=== PATIENT | male | born 1955 | race Caucasian/White ===

== ENCOUNTER → 2017-08-16 | Outpatient (CLI) | payer OTHER ==
[~2017-08-16] MED LIST: ASPEC81 PO; ATOR-22 PO; CLB200 PO; ESCI10TA17 PO; FAMO20TA11 PO; FLUO20CA35 PO; METO100T14 PO; METO25TA56 PO; METO50TA16 PO; NIAC500T11 PO; SULF500T36 PO
[2017-08-16 17:40] LABS: BLOOD UREA NITROGEN 17 mg/dl (7-18); BUN/CREATININE RATIO 21.2 (10-20); CREATININE 0.81 mg/dl (0.60-1.40)
== END | disposition home or self-care (01) ==
LOC: C.LABBC 15:21
PROVIDERS: ATTEND Physician Assistant Medical
DX: N35.9 Urethral stricture, unspecified (principal); M54.9 Dorsalgia, unspecified

== ENCOUNTER → 2017-10-29 | Outpatient (CLI) | payer OTHER ==
[~2017-10-29] MED LIST changes: -ESCI10TA17 PO; -METO25TA56 PO; -METO50TA16 PO; -NIAC500T11 PO; -SULF500T36 PO
[2017-10-29 15:38] LABS: HEMATOCRIT 43.9 % (42-52); HEMOGLOBIN 14.4 g/dL (14.0-18.0); MEAN CELL VOLUME 92.2 fL (80-100); MEAN CORPUSCULAR HEMOGLOBIN 30.3 pg (25-34); MEAN CORPUSCULAR HGB CONC 32.8 g/dl (32-36); MEAN PLATELET VOLUME 11.1 fL (7.4-10.4); PLATELET COUNT 230 K/uL (130-400); RED CELL DISTRIBUTION WIDTH CV 15.3 % (11.5-14.5); RED CELL DISTRIBUTION WIDTH SD 51.9 fL (36.4-46.3); WHITE BLOOD COUNT 7.99 K/uL (4.8-10.8)
[2017-10-29 16:02] LABS: ALBUMIN 3.8 gm/dl (3.4-5.0); ALT/SGPT 36 U/L (12-78); AST/SGOT 21 U/L (15-37); BLOOD UREA NITROGEN 12 mg/dl (7-18); CALCIUM 8.5 mg/dl (8.5-10.1); CARBON DIOXIDE 28 mmol/L (21-32); CHOLESTEROL 109 mg/dl (0-200); CREATININE 0.77 mg/dl (0.60-1.40); GLUCOSE 101 mg/dl (70-99); LDL CHOLESTEROL CALCULATED 53 mg/dl; POTASSIUM 3.6 mmol/L (3.5-5.1); SODIUM 138 mmol/L (136-145)
[2017-10-29 16:12] LABS: ALKALINE PHOSPHATASE 58 U/L (45-117); TOTAL PROTEIN 7.4 gm/dl (6.4-8.2)
[2017-10-30 06:04] LABS: HEMOGLOBIN A1C 6.7 % (4.5-5.6)
== END | disposition home or self-care (01) ==
LOC: C.LAB1850 14:47
PROVIDERS: ATTEND Internal Medicine Cardiovascular Disease
DX: Z00.00 Encounter for general adult medical examination without abnormal findings (principal); I10 Essential (primary) hypertension; E78.5 Hyperlipidemia, unspecified

== ENCOUNTER → 2017-11-23 | Outpatient (CLI) | payer OTHER ==
--- NOTE | 2017-11-23 11:14 | DIAGNOSTIC IMAGING REPORT ---
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 FINDINGS: The sacroiliac joints are within normal limits. No evidence for erosions or fusion. No radiographic evidence for single ileitis. No fractures identified within the sacrum. Surgical clips within the deep pelvis. IMPRESSION: Normal bilateral sacroiliac joints. Electronically signed by: Lester Willett M.D. 11/23/2017 11:12 AM Dictated Date/Time: 11/23/2017 11:10 AM
--- NOTE | 2017-11-23 11:16 | DIAGNOSTIC IMAGING REPORT ---
C-SPINE ROUTINE 4 OR 5 VIEWS HISTORY: Pain. Neuropathy. 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 FINDINGS: The cervical spine is visualized from C1 through the superior endplate of T1. There is no fracture. No subluxation. Mild/moderate degenerative disc change C4-C5. Mild osteophytic narrowing of the neuroforamina bilaterally from C3 through C5. Prevertebral soft tissues and the atlantodens interval are intact. IMPRESSION: Mild/moderate degenerative change primarily of the mid cervical region. No acute process. The above report was generated using voice recognition software. It may contain grammatical, syntax or spelling errors. Electronically signed by: Matt Mccartney M.D. 11/23/2017 11:14 AM Dictated Date/Time: 11/23/2017 11:14 AM
--- NOTE | 2017-11-23 11:17 | DIAGNOSTIC IMAGING REPORT ---
LEFT WRIST 4 VIEWS; LEFT HAND 3 VIEWS CLINICAL HISTORY: Psoriatic arthropathy. FINDINGS: 4 views of the left wrist an 3 views of the left hand are obtained. No prior studies are available for comparison at the time of dictation. No fracture is seen in the left wrist or hand. Periarticular osteopenia is noted involving the metacarpophalangeal joints. Osteopenia is also seen throughout the carpal bones. There is advanced degenerative narrowing at the radiocarpal articulation with mild bony sclerosis. Mild negative ulnar variance is noted. Degenerative cyst formation is seen within the distal ulna, and arthritic change is present at the distal radioulnar joint. There is complete fusion throughout the carpal bones, with erosive arthritic change seen at the carpometacarpal and metacarpophalangeal joints. There is subluxation identified at the first carpometacarpal joint, the first metacarpophalangeal joint, as well as the second and third proximal interphalangeal joints. Advanced erosion is identified involving the heads of the third and fifth proximal phalanges. Milder erosive change is seen in the second and third metacarpal heads as well as the head of the second proximal phalanx. Erosive change is also seen involving the distal interphalangeal joints, greatest in the second and third digits. Mild soft tissue swelling is suggested in the fingers. IMPRESSION: 1. No acute bony abnormality is identified in the left wrist or hand. 2. There is near bony fusion throughout the carpal bones with erosive arthritic change at the carpometacarpal articulations. 3. Advanced erosive arthritic change is identified throughout the hand as above. See discussion. Electronically signed by: Go Villalpando M.D. 11/23/2017 11:16 AM Dictated Date/Time: 11/23/2017 11:08 AM
--- NOTE | 2017-11-23 11:17 | DIAGNOSTIC IMAGING REPORT ---
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 COMPARISON: None DISCUSSION: Severe degenerative change right wrist. Ankylosis and degenerative fusion of the bulk of the carpal bone structures. Erosive changes involving the base of the first metacarpal. Severe degenerative change of the radiocarpal and ulnocarpal articulations. There is no evidence for soft tissue swelling. IMPRESSION: Severe degenerative change with evidence for bony ankylosis and fusion.] This exam is Highly suggestive of advanced psoriatic arthropathy. The above report was generated using voice recognition software. It may contain grammatical, syntax or spelling errors. Electronically signed by: Matt Mccartney M.D. 11/23/2017 11:16 AM Dictated Date/Time: 11/23/2017 11:15 AM
--- NOTE | 2017-11-23 11:21 | DIAGNOSTIC IMAGING REPORT ---
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 DISCUSSION: Severe degenerative change and bony ankylosis of the carpal bones which has been described previously. Severe degenerative change of the carpal metacarpal joints. Degenerative subluxation of the first carpometacarpal joint with evidence for erosive changes involving the base of the first metacarpal as well as metacarpophalangeal joint of the right thumb. Considerable degenerative change of the interphalangeal joints with subchondral erosive-type change. There is no evidence for soft tissue swelling. IMPRESSION: Severe degenerative change primarily of the thumb and carpal regions. Significant degenerative change of the interphalangeal joints. This study is highly suggestive of advanced psoriatic arthritis. The above report was generated using voice recognition software. It may contain grammatical, syntax or spelling errors. Electronically signed by: Matt Mccartney M.D. 11/23/2017 11:20 AM Dictated Date/Time: 11/23/2017 11:18 AM
== END | disposition home or self-care (01) ==
LOC: C.RAD1850 10:43
PROVIDERS: ATTEND Internal Medicine Rheumatology
DX: G37.9 Demyelinating disease of central nervous system, unspecified (principal); L40.50 Arthropathic psoriasis, unspecified

== ENCOUNTER → 2017-11-28 | Outpatient (CLI) | payer OTHER ==
--- NOTE | 2017-11-28 16:34 | DIAGNOSTIC IMAGING REPORT ---
SACROILIAC JOINT MRI HISTORY: Assess for sacroiliitis. 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 COMPARISON STUDY: Sacroiliac joint radiographs 11/23/2017. FINDINGS: Tiny focal central disc protrusion at L5-S1 without significant central canal or neural foraminal narrowing. Normal marrow signal intensity seen within the sacrum and visualized iliac bones. The bilateral sacroiliac joints are within normal limits. No erosions or fluid identified within the sacroiliac joints. Presacral soft tissues are unremarkable. The sacral central canal and neural foramen are widely patent. Mild edema within the distal right erector spinae muscles at the level of L5 and the distal sacrum. IMPRESSION: 1. Normal sacrum/sacroiliac joints. 2. Mild edema within the distal right erector spinae muscles at the level of L5 and the distal sacrum. This is nonspecific but could be due to a mild muscular strain or denervation atrophy. 3. Tiny focal central disc protrusion at L5-S1 without significant central canal narrowing. Electronically signed by: Lester Willett M.D. 11/28/2017 4:32 PM Dictated Date/Time: 11/28/2017 4:00 PM
== END | disposition home or self-care (01) ==
LOC: C.MRI 15:18
PROVIDERS: ATTEND Internal Medicine Rheumatology
DX: M48.9 Spondylopathy, unspecified (principal); L40.50 Arthropathic psoriasis, unspecified; G37.9 Demyelinating disease of central nervous system, unspecified

== ENCOUNTER 2021-02-24 09:40 | Inpatient (IN) ==
[2021-02-24] MEDS ORDERED: SODIUM CHLORIDE 0.9% 1000ML 1,000 ML IV STA (10:36)
--- NOTE | 2021-02-24 10:42 | Emergency Department Note ---
Impression & Plan Left sided abdominal pain, Leukocytosis, Acute diverticulitis, Failure of outpatient treatment ED Provider Note NAME: RADHA MURRAY AGE: 66 SEX: M : 1955 ARRIVES VIA: Walk-In INFORMANT: [Patient] ED PROVIDER(S): [Go Cain MD] CHIEF COMPLAINT: Abdominal pain HISTORY OF PRESENT ILLNESS: Patient is a 66-year-old male presents with 4 days of lower abdominal pain. The pain at times has been a 10/10. The worst bout of pain was when his dog jumped on his abdomen. Patient also notices increased pain with movement and palpation. He has also had a fever, temperature recorded at 101 F. There has been a decreased appetite but no vomiting. He does have some pain with urination. No diarrhea. No shortness of breath, cough or congestion. The patient did start Augmentin for the possibility of diverticulitis. He has taken 4 doses and he actually thought this morning he felt slightly better. The patient has had a prostatectomy. He has some scar tissue from the prostate surgery causing some mild urinary obstruction. The patient states that for the last several months he has had some suprapubic pain with straining that he felt was from the scar tissue itself. He has had some occasional times when the left lower quadrant has been tender to touch. His real discomfort though and persistent symptoms did not start until 4 days ago. REVIEW OF SYSTEMS: See HPI for pertinent positives and negatives. A total of ten systems were reviewed and were otherwise negative. PMHx/PSHx: See Below SOCIAL HISTORY: See Below. PHYSICAL EXAM: GENERAL: Patient is in no acute distress. HEENT: No acute trauma, normocephalic atraumatic, mucous membranes moist, no nasal congestion, no scleral icterus. NECK: No stridor, no adenopathy, no meningismus, trachea is midline. LUNGS: Clear to auscultation bilaterally, no wheeze, no rhonchi, breath sounds equal. HEART: Without murmurs gallops or rubs, regular rate and rhythm. ABDOMEN: Soft, moderately tender in the left lower quadrant and suprapubic area, bowel sounds positive, no hernias, no peritonitis. EXTREMITIES: No cyanosis or edema, full range of motion of all the joints without pain or difficulty, no signs for acute trauma. NEUROLOGIC: Oriented x 3, no acute motor or sensory deficits, no focal weakness. SKIN: No rash, no jaundice, no diaphoresis. DIFFERENTIAL DIAGNOSIS: Testicular torsion, infections, diverticulitis, UTI, obstruction, mesenteric ischemia, abscess, aortic pathology, inflammatory bowel disease, renal colic, PUD, pancreatitis, biliary pathology, hernia, volvulus, constipation, as well as other pathologies. EMERGENCY DEPARTMENT COURSE/PROCEDURES: MEDICAL DECISION MAKING: There is a moderate leukocytosis at 15,000, this would be consistent with infection. No concerning anemia. There is a normal platelet count. No significant electrolyte abnormality or kidney failure. No worrisome liver enzyme elevation. No evidence for pancreatitis. Urinalysis did not show infection. Covid testing returned negative. Abdominal and pelvis CT shows diverticulitis with a 1.8 cm abscess, no bowel perforation. On exam, the patient was tender in the left lower quadrant and mid pelvis. He was not toxic, he was not febrile. The patient received a 1 L saline bolus. He was given a dose of IV Unasyn. I talked to the patient about his findings. I discussed the case with surgery. The patient is going to be admitted medically. No acute surgical intervention was felt necessary. The patient is aware of his diagnosis. I did speak with case management. The on-call hospitalist was consulted. 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 Psoriatic arthritis Surgical History H/O prostatectomy History of appendectomy History of colonoscopy Social History Smoking Status: Never smoker Second Hand Exposure: Yes (as a child); Do You Dip or Chew Tobacco: No; Hx Alcohol Use: Yes Alcohol type: beer and wine Hx Substance Use: No Preferred Language: Telugu Communication Ability: Effective Appeals Representative Required: No Beliefs That Will Affect Care: None Current Living Situation: Spouse Other Information That Helps Us Care for You: No Feels Safe at Home: Yes Safety Concerns: Feels Safe At This Time Assistive Devices: Glasses Allergies Allergies Allergy/AdvReac Type Severity Reaction Status Date / Time No Known Allergies Allergy Unknown Verified 02/27/20 08:04 Home Meds Home Medications Medication Instructions Recorded Confirmed aspirin 81 mg tablet,delayed 81 mg PO DAILY 11/26/18 02/24/21 release famotidine 20 mg tablet 20 mg PO DAILY PRN 11/26/18 02/24/21 gabapentin 300 mg PO HS PRN 02/24/21 02/24/21 Previous Rx's Medication Instructions Recorded ustekinumab 45 mg/0.5 mL See Rx Instructions .ROUTE 01/26/20 subcutaneous syringe .COMPLEX #1 unspecified sildenafil 100 mg tablet 100 mg PO DAILY PRN #14 tab 03/04/20 metoprolol succinate 100 mg 100 mg PO DAILY #90 tab 06/29/20 tablet,extended release 24 hr metformin 500 mg tablet,extended 500 mg PO DAILY #90 tab 08/11/20 release 24hr meclizine 25 mg tablet 25 mg PO TID PRN #30 tab 08/26/20 fluoxetine 20 mg capsule 20 mg PO DAILY #90 cap 11/01/20 losartan 50 mg tablet 50 mg PO DAILY #90 tab 11/01/20 valacyclovir 500 mg tablet 500 mg PO BID #180 tab 02/02/21 amoxicillin 875 mg-potassium 1 tab PO Q12H #20 tab 02/22/21 clavulanate 125 mg tablet atorvastatin 80 mg tablet 80 mg PO QPM #90 tab 02/23/21 Results & Data (ED) Vital Signs Vital Signs - 24 hr 02/24/21 09:45 02/24/21 12:09 02/24/21 12:13 Temperature 36.6 C Temperature Source Temporal Artery Scan Pulse Rate 75 62 62 Pulse Rate from SpO2 Sensor 62 62 Respiratory Rate 18 17 21 Respiratory Effort / Characteristics Non-Labored Spontaneous Respiratory Depth Normal Respiratory Pattern Regular Blood Pressure 121/87 122/73 Blood Pressure Mean 98 89 Pulse Oximetry 94 96 97 Oxygen Delivery Method Room Air Sepsis Recent Fever Within 48 Hours No Sepsis New/Unexplained Change in Mental Status N/A Sepsis Action Taken by Nursing No Action Required 02/24/21 12:30 02/24/21 13:00 02/24/21 13:01 Temperature Temperature Source Pulse Rate 65 67 66 Pulse Rate from SpO2 Sensor 66 66 66 Respiratory Rate 20 15 24 Respiratory Effort / Characteristics Respiratory Depth Respiratory Pattern Blood Pressure 126/81 Blood Pressure Mean 96 64 Pulse Oximetry 98 99 99 Oxygen Delivery Method Sepsis Recent Fever Within 48 Hours Sepsis New/Unexplained Change in Mental Status Sepsis Action Taken by Nursing 02/24/21 13:30 02/24/21 14:00 Temperature Temperature Source Pulse Rate 66 64 Pulse Rate from SpO2 Sensor 66 65 Respiratory Rate 16 22 Respiratory Effort / Characteristics Respiratory Depth Respiratory Pattern Blood Pressure 129/83 Blood Pressure Mean 98 Pulse Oximetry 99 97 Oxygen Delivery Method Sepsis Recent Fever Within 48 Hours Sepsis New/Unexplained Change in Mental Status Sepsis Action Taken by Skilled Nursing Medications Current Medication List: was personally reviewed by me Laboratory Data Attestation: I reviewed the patient's lab results. Result diagrams: 02/24/21 10:49 02/24/21 10:49 Lab Results 02/24/21 02/24/21 02/24/21 Range/Units 10:49 10:49 10:49 WBC 15.93 H (4.8-10.8) K/uL RBC 4.33 L (4.7-6.1) M/uL Hgb 14.3 (14.0-18.0) g/dL Hct 41.5 L (42-52) % MCV 95.8 (80-100) fL MCH 33.0 (25-34) pg MCHC 34.5 (32-36) g/dL RDW Std Deviation 46.5 H (36.4-46.3) fL RDW Coeff of Noah 13.2 (11.5-14.5) % Plt Count 254 (130-400) K/uL MPV 10.6 H (7.4-10.4) fL Immature Gran % (Auto) 0.2 % Neut % (Auto) 85.8 % Lymph % (Auto) 7.0 % Davis % (Auto) 6.7 % Eos % (Auto) 0.2 % Baso % (Auto) 0.1 % Neut # (Auto) 13.66 H (1.4-6.5) K/uL Lymph # (Auto) 1.12 L (1.2-3.4) K/uL Davis # (Auto) 1.07 H (0.11-0.59) K/uL Eos # (Auto) 0.03 (0-0.5) K/uL Baso # (Auto) 0.02 (0-0.2) K/uL Immature Gran # (Auto) 0.03 H (0.00-0.02) K/uL Sodium 136 (136-145) mmol/L Potassium 3.8 (3.5-5.1) mmol/L Chloride 102 (98-107) mmol/L Carbon Dioxide 29 (21-32) mmol/L Anion Gap 5.0 (3-11) BUN 13 (7-18) mg/dl Creatinine 1.08 (0.6-1.4) mg/dl Est Cr Clr Drug Dosing 57.7 ml/min Est GFR ( Amer) 81.9 ml/min Est GFR (Non-Af Amer) 70.6 ml/min BUN/Creatinine Ratio 12.1 (10-20) Glucose 142 H (70-99) mg/dl Calcium 8.6 (8.5-10.1) mg/dl Total Bilirubin 1.0 (0.2-1) mg/dl AST 15 (15-37) U/L ALT 24 (12-78) U/L Alkaline Phosphatase 77 (45-117) U/L Total Protein 8.3 H (6.4-8.2) gm/dl Albumin 3.7 (3.4-5.0) gm/dl Globulin 4.6 H (2.5-4.0) gm/dl Albumin/Globulin Ratio 0.8 L (0.9-2) Lipase 129 (73-393) U/L Urine Color Yellow Urine Appearance Clear (Clear) Urine pH 5.0 (4.5-7.5) Ur Specific [place] 1.021 (1.000-1.030) Urine Protein Negative (Negative) Urine Glucose (UA) Negative (Negative) Urine Ketones Trace H (Negative) Urine Blood Negative (Negative) Urine Nitrite Negative (Negative) Urine Bilirubin Negative (Negative) Urine Urobilinogen Negative (Negative) Ur Leukocyte Esterase Negative (Negative) COVID-19 Eval Order SARS-CoV-2 (PCR) (Negative) 02/24/21 02/24/21 Range/Units 13:39 13:39 WBC (4.8-10.8) K/uL RBC (4.7-6.1) M/uL Hgb (14.0-18.0) g/dL Hct (42-52) % MCV (80-100) fL MCH (25-34) pg MCHC (32-36) g/dL RDW Std Deviation (36.4-46.3) fL RDW Coeff of Noah (11.5-14.5) % Plt Count (130-400) K/uL MPV (7.4-10.4) fL Immature Gran % (Auto) % Neut % (Auto) % Lymph % (Auto) % Davis % (Auto) % Eos % (Auto) % Baso % (Auto) % Neut # (Auto) (1.4-6.5) K/uL Lymph # (Auto) (1.2-3.4) K/uL Davis # (Auto) (0.11-0.59) K/uL Eos # (Auto) (0-0.5) K/uL Baso # (Auto) (0-0.2) K/uL Immature Gran # (Auto) (0.00-0.02) K/uL Sodium (136-145) mmol/L Potassium (3.5-5.1) mmol/L Chloride (98-107) mmol/L Carbon Dioxide (21-32) mmol/L Anion Gap (3-11) BUN (7-18) mg/dl Creatinine (0.6-1.4) mg/dl Est Cr Clr Drug Dosing ml/min Est GFR ( Amer) ml/min Est GFR (Non-Af Amer) ml/min BUN/Creatinine Ratio (10-20) Glucose (70-99) mg/dl Calcium (8.5-10.1) mg/dl Total Bilirubin (0.2-1) mg/dl AST (15-37) U/L ALT (12-78) U/L Alkaline Phosphatase (45-117) U/L Total Protein (6.4-8.2) gm/dl Albumin (3.4-5.0) gm/dl Globulin (2.5-4.0) gm/dl Albumin/Globulin Ratio (0.9-2) Lipase (73-393) U/L Urine Color Urine Appearance (Clear) Urine pH (4.5-7.5) Ur Specific [place] (1.000-1.030) Urine Protein (Negative) Urine Glucose (UA) (Negative) Urine Ketones (Negative) Urine Blood (Negative) Urine Nitrite (Negative) Urine Bilirubin (Negative) Urine Urobilinogen (Negative) Ur Leukocyte Esterase (Negative) COVID-19 Eval Order Covid19 at [facility] SARS-CoV-2 (PCR) NEGATIVE (Negative) Administered Medications Sodium Chloride (Nss 1000ml) 1,000 mls @ 100 mls/hr IV .Q10H AUGUSTINE Stop: 03/26/21 16:34 Last Admin: 02/24/21 17:20 Dose: 100 mls/hr Documented by: [id number] Insulin Aspart (Insulin Aspart 100 Units/Ml 3 Ml Pen) 0 units SC Q6 AUGUSTINE Stop: 03/26/21 17:59 Last Admin: 02/24/21 18:09 Dose: Not Given Documented by: [id number] Discontinued Medications Sodium Chloride (Nss 1000ml) 1,000 mls @ 999 mls/hr IV .Q1H1M STA Stop: 02/24/21 11:36 Last Infusion: 02/24/21 12:04 Dose: 0 mls/hr Documented by: [id number] Admin: 02/24/21 10:57 Dose: 999 mls/hr Documented by: [id number] Ampicillin Sodium/Sulbactam Sodium 3,000 mg/ Sodium Chloride 108 mls @ 200 mls/hr IV NOW STA; Protocol Stop: 02/24/21 13:07 Last Infusion: 02/24/21 14:06 Dose: 0 mls/hr Documented by: [id number] Admin: 02/24/21 13:27 Dose: 200 mls/hr Documented by: [id number] Insulin Aspart (Insulin Aspart 100 Units/Ml 3 Ml Pen) 0 units SC ACHS AUGUSTINE Stop: 03/26/21 16:34 Last Admin: 02/24/21 17:58 Dose: Not Given Documented by: [id number] Ioversol (Optiray 320 150ml) 95 ml IV ONCE ONE Stop: 02/24/21 11:48 Last Admin: 02/24/21 11:47 Dose: 95 ml Documented by: [id number] Imaging Data Radiologist's Impression: Abdomen/Pelvis CT 02/24/21 10:[address] WITH IV CONTRAST CT DOSE: 659.75 mGycm HISTORY: lower abd pain, fever TECHNIQUE: Multiaxial CT images of the abdomen and pelvis were performed following the use of intravenous contrast. A dose lowering technique was utilized adhering to the principles of ALARA. COMPARISON STUDY: None. FINDINGS: There is a 3 mm subpleural nodule within the right lower lobe on image 42. No suspicious lytic are blastic osseous lesions. The liver, gallbladder, pancreas, spleen, and adrenal glands are unremarkable. There are few subcentimeter hypodense lesions within the left kidney measuring up to 7 mm. These are technically too small to characterize but statistically represent cysts. The right kidney enhances normally. No hydronephrosis. Normal caliber abdominal aorta with mild calcified plaque. No retroperitoneal lymphadenopathy. The bladder is unremarkable. The prostate gland is surgically absent. Focal thickening within the mid sigmoid colon with pericolonic fat stranding. There is a 1.8 cm peridiverticular multiloculated gas and fluid collection likely representing a small abscess. Therefore, these findings are consistent with acute diverticulitis. Multiple additional colonic diverticula are identified. Moderate well-formed stool within the colon. No dilated loops of bowel to suggest an obstruction. A small appendiceal stump is identified suggesting prior appendectomy. IMPRESSION: 1. Acute sigmoid diverticulitis with a 1.8 cm peridiverticular abscess. Follow- up colonoscopy should be performed once the patient's diverticulitis has resolved to exclude the less likely possibility of an underlying colonic lesion. 2. Prior prostatectomy. 3. No evidence for bowel obstruction. 4. A 3 mm indeterminate pulmonary nodule within the right lower lobe. This is low suspicion. However, follow-up recommended as detailed below. Please refer to below summary of Fleischner criteria recommendations for follow- up of incidental CT nodules (Dandy Zelaya, Guidelines for management of small pulmonary nodules detected on CT scans: A statement from the Fleischner Society, Radiology 237: [phone].) SOLID NODULES Solitary nodule size: <6 mm * Low risk patients: no follow-up needed * high risk patients: optional CT at 12 months Solitary nodule size: 6-8 mm * Low risk patients: follow-up at 6-12 months, then consider further follow-up at 18-24 months * high risk patients: initial follow-up CT at 6-12 months and then at 18-24 months if no change Solitary nodule size: >8 mm * either low or high risk patients - consider follow-up CT at 3 months, and/or CT-PET, and/or biopsy Multiple nodules size: <6 mm * Low risk patients: no routine follow-up * high risk patients: optional CT at 12 months Multiple nodules size: 6-8 mm * Low risk patients: follow-up at 3-6 months, then consider further follow-up at 18-24 months * high risk patients: follow-up at 3-6 months, then at 18-24 months if no change Multiple nodules size: >8 mm * Low risk patients: follow-up at 3-6 months, then consider further follow-up at 18-24 months * high risk patients: follow-up at 3-6 months, then at 18-24 months if no change Note: newly detected indeterminate nodule in persons 35 years of age or older. * Low risk patients: minimal or absent history of smoking and/or other known risk factors * high risk patients: history of smoking or of other known risk factors (e.g. first degree relative with lung cancer, or exposure to asbestos, radon, uranium) * if a nodule up to 8 mm is partly solid or is ground glass further follow-up is required after 24 months to exclude possible slow growing adenocarcinoma (BA C) SUBSOLID NODULES Solitary pure ground-glass nodule * nodule size <6 mm - no CT follow-up required * nodule size >=6 mm - follow-up CT at 6-12 months, then every 2 years until 5 years Solitary part-solid nodule * nodule size <6 mm - no CT follow-up required * nodule size >=6 mm - follow-up CT at 3-6 months. If unchanged, and solid component remains <6 mm, then annual follow-up for 5 years Multiple subsolid nodules * nodule size <6 mm - follow-up CT at 3-6 months, consider further follow-up at 2 and 4 years if stable * nodule size >=6 mm - follow-up CT at 3-6 months, subsequent management based on the most suspicious nodule(s) ACT 112: Negative or not required by law. Electronically signed by: Lester Willett M.D. 02/24/2021 12:23 PM Discharge Plan Visit Data Chief Complaint: Abdominal Pain Stated Complaint: ABD PAIN ED Provider: Go Cain Discharge Problem: Left sided abdominal pain, Leukocytosis, Acute diverticulitis, Failure of outpatient treatment Patient Disposition: Admitted As Inpatient Condition: Fair Discharge Instructions Interventions: ED Discharge Assessment Last Done: 02/24/21 15:29 Discharge Problem: Leukocytosis Qualifiers: Leukocytosis type: unspecified Qualified Code(s): D72.829 - Elevated white blood cell count, unspecified
[2021-02-24 11:00] LABS: Basophils # (auto) 0.02 K/uL (0-0.2); Basophils % (auto) 0.1 %; Eosinophils # (auto) 0.03 K/uL (0-0.5); Eosinophils % (auto) 0.2 %; Hematocrit (blood only) 41.5 % (42-52); Hemoglobin 14.3 g/dL (14.0-18.0); Immature Granulocytes # (auto) 0.03 K/uL (0.00-0.02); Immature Granulocytes % (auto) 0.2 %; Lymphocytes # (auto) 1.12 K/uL (1.2-3.4); Mean Corpuscular Hgb Conc 34.5 g/dL (32-36); Mean Corpuscular Volume 95.8 fL (80-100); Mean Platelet Volume 10.6 fL (7.4-10.4); Monocytes # (auto) 1.07 K/uL (0.11-0.59); Monocytes % (auto) 6.7 %; Neutrophils # (auto) 13.66 K/uL (1.4-6.5); Neutrophils % (auto) 85.8 %; Platelet Count 254 K/uL (130-400); RDW Coefficient of Variation 13.2 % (11.5-14.5); RDW Standard Deviation 46.5 fL (36.4-46.3); Red Blood Count 4.33 M/uL (4.7-6.1); White Blood Count 15.93 K/uL (4.8-10.8)
[2021-02-24 11:18] LABS: Albumin Level 3.7 gm/dl (3.4-5.0); BUN Creatinine Ratio 12.1 (10-20); Calcium 8.6 mg/dl (8.5-10.1); Creatinine Clr Calc Pharmacy 57.7 ml/min; Est GFR (African American) 81.9 ml/min; Est GFR (Non-African American) 70.6 ml/min; Potassium 3.8 mmol/L (3.5-5.1)
[2021-02-24 11:19] LABS: Appearance Urine Clear (Clear); Bilirubin Urine Negative (Negative); Blood Urine Negative (Negative); Color Urine Yellow; Glucose Urine UA Negative (Negative); Ketones Urine Trace (Negative); Leukocyte Esterase Urine Negative (Negative); Nitrite Urine Negative (Negative); Protein Urine Negative (Negative); Specific Gravity Urine 1.021 (1.000-1.030); Urobilinogen Urine Negative (Negative)
[2021-02-24 11:21] LABS: Albumin Globulin Ratio 0.8 (0.9-2); Globulin 4.6 gm/dl (2.5-4.0); Total Protein 8.3 gm/dl (6.4-8.2)
[2021-02-24] MEDS ORDERED: OPTIRAY 320 150ml IV ONE (11:47)
--- NOTE | 2021-02-24 12:24 | CT Scan Report ---
ABDOMEN AND PELVIS CT WITH IV CONTRAST CT DOSE: 659.75 mGycm HISTORY: lower abd pain, fever TECHNIQUE: Multiaxial CT images of the abdomen and pelvis were performed following the use of intrave nous contrast. A dose lowering technique was utilized adhering to the principles of ALARA. COMPARISON STUDY: None. FINDINGS: There is a 3 mm subpleural nodule within the right lower lobe on image 42. No suspicious ly tic are blastic osseous lesions. The liver, gallbladder, pancreas, spleen, and adrenal glands are unr emarkable. There are few subcentimeter hypodense lesions within the left kidney measuring up to 7 mm. These are technically too small to characterize but statistically represent cysts. The right kidney enhances normally. No hydronephrosis. Normal caliber abdominal aorta with mild calcified plaque. No r etroperitoneal lymphadenopathy. The bladder is unremarkable. The prostate gland is surgically absent. Focal thickening within the mid sigmoid colon with pericolonic fat stranding. There is a 1.8 cm dillon diverticular multiloculated gas and fluid collection likely representing a small abscess. Therefore, these findings are consistent with acute diverticulitis. Multiple additional colonic diverticula are identified. Moderate well-formed stool within the colon. No dilated loops of bowel to suggest an obst ruction. A small appendiceal stump is identified suggesting prior appendectomy. IMPRESSION: 1. Acute sigmoid diverticulitis with a 1.8 cm peridiverticular abscess. Follow-up colonoscopy should be performed once the patient's diverticulitis has resolved to exclude the less likely possibility of an underlying colonic lesion. 2. Prior prostatectomy. 3. No evidence for bowel obstruction. 4. A 3 mm indeterminate pulmonary nodule within the right lower lobe. This is low suspicion. However, follow-up recommended as detailed below. Please refer to below summary of Fleischner criteria recommendations for follow-up of incidental CT n odules (Dandy Zelaya, Guidelines for management of small pulmonary nodules detected on CT scans: A sta tement from the Fleischner Society, Radiology 237: [phone].) SOLID NODULES Solitary nodule size: <6 mm * Low risk patients: no follow-up needed * high risk patients: optional CT at 12 months Solitary nodule size: 6-8 mm * Low risk patients: follow-up at 6-12 months, then consider further follow-up at 18-24 months * high risk patients: initial follow-up CT at 6-12 months and then at 18-24 months if no change Solitary nodule size: >8 mm * either low or high risk patients - consider follow-up CT at 3 months, and/or CT-PET, and/or biopsy Multiple nodules size: <6 mm * Low risk patients: no routine follow-up * high risk patients: optional CT at 12 months Multiple nodules size: 6-8 mm * Low risk patients: follow-up at 3-6 months, then consider further follow-up at 18-24 months * high risk patients: follow-up at 3-6 months, then at 18-24 months if no change Multiple nodules size: >8 mm * Low risk patients: follow-up at 3-6 months, then consider further follow-up at 18-24 months * high risk patients: follow-up at 3-6 months, then at 18-24 months if no change Note: newly detected indeterminate nodule in persons 35 years of age or older. * Low risk patients: minimal or absent history of smoking and/or other known risk factors * high risk patients: history of smoking or of other known risk factors (e.g. first degree relative with lung cancer, or exposure to asbestos, radon, uranium) * if a nodule up to 8 mm is partly solid or is ground glass further follow-up is required after 24 m onths to exclude possible slow growing adenocarcinoma (CAR) SUBSOLID NODULES Solitary pure ground-glass nodule * nodule size <6 mm - no CT follow-up required * nodule size >=6 mm - follow-up CT at 6-12 months, then every 2 years until 5 years Solitary part-solid nodule * nodule size <6 mm - no CT follow-up required * nodule size >=6 mm - follow-up CT at 3-6 months. If unchanged, and solid component remains <6 mm, then annual follow-up for 5 years Multiple subsolid nodules * nodule size <6 mm - follow-up CT at 3-6 months, consider further follow-up at 2 and 4 years if sta ble * nodule size >=6 mm - follow-up CT at 3-6 months, subsequent management based on the most suspiciou s nodule(s) ACT 112: Negative or not required by law. Electronically signed by: Lester Willett M.D. 02/24/2021 12:23 PM
[2021-02-24] MEDS ORDERED: AMPICILLIN/SULBACTAM SOD 3,000 MG in 0.9 % SODIUM CHLORIDE 100 ML IV STA (12:35)
--- NOTE | 2021-02-24 13:11 | Surgery Consultation ---
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 Workup in the ER with a CT a/p revealing findings concerning for acute sigmoid diverticulitis with 1.7cm dillon- diverticular abscess. WBC 15.9. Patient was started on a course of augmentin (1st dose evening), however symptoms have worsened. Last colonoscopy was in 2018- findings revealed sigmoid diverticulosis and non bleeding hemorrhoids. Agree with admission to the hospital for IV abx for acute sigmoid diverticulitis with abscess. Keep patient NPO with IVF for today (can have sips/chips). Repeat blood work tomorrow. We will continue to follow. No plans for surgical intervention at this time. 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 Patient reports his pain started around this last Sunday. He was prescribed some Augmentin thinking it was possibly diverticulitis. He reports chills and a temp of 101F Sunday evening. He called off on work on Sunday since he wasn't feeling well. Symptoms continued to progress therefore he came to the ER for further evaluation. In the ER patient underwent a CT a/p that revealed findings consistent with sigmoid diverticulitis with a 1.8cm dillon-diverticular abscess. Patient reports he had had a lack of appetite and mostly has just been drinking water. His last real BM was on Sunday, now he is having some loose mucous like stools. He had a colonoscopy in 2018 that revealed findings of sigmoid diverticulosis and non bleeding hemorrhoids. Patient says this is the first time he has sought treatment for diverticulitis. His surgical history includes an appendectomy and prostatectomy. Allergies Allergy/AdvReac Type Severity Reaction Status Date / Time No Known Allergies Allergy Unknown Verified 02/27/20 08:04 Home Medications Medication Instructions Recorded Confirmed Type aspirin 81 mg tablet,delayed 81 mg PO DAILY 11/26/18 02/24/21 History release famotidine 20 mg tablet 20 mg PO DAILY PRN 11/26/18 02/24/21 History ustekinumab 45 mg/0.5 mL See Rx Instructions .ROUTE 01/26/20 02/24/21 Rx subcutaneous syringe .COMPLEX #1 unspecified sildenafil 100 mg tablet 100 mg PO DAILY PRN #14 tab 03/04/20 02/24/21 Rx metoprolol succinate 100 mg 100 mg PO DAILY #90 tab 06/29/20 02/24/21 Rx tablet,extended release 24 hr metformin 500 mg tablet,extended 500 mg PO DAILY #90 tab 08/11/20 02/24/21 Rx release 24hr meclizine 25 mg tablet 25 mg PO TID PRN #30 tab 08/26/20 02/24/21 Rx fluoxetine 20 mg capsule 20 mg PO DAILY #90 cap 11/01/20 02/24/21 Rx losartan 50 mg tablet 50 mg PO DAILY #90 tab 11/01/20 02/24/21 Rx valacyclovir 500 mg tablet 500 mg PO BID #180 tab 02/02/21 02/24/21 Rx amoxicillin 875 mg-potassium 1 tab PO Q12H #20 tab 02/22/21 02/24/21 Rx clavulanate 125 mg tablet atorvastatin 80 mg tablet 80 mg PO QPM #90 tab 02/23/21 02/24/21 Rx gabapentin 300 mg PO HS PRN 02/24/21 02/24/21 History Patient History Medical History GERD (gastroesophageal reflux disease) Hypercholesterolemia Hypertension Lumbar disc herniation L3-4 Psoriatic arthritis Surgical History H/O prostatectomy History of appendectomy History of colonoscopy Social History Smoking Status: Never smoker Second Hand Exposure: Yes (as a child); Hx Alcohol Use: Yes Hx Substance Use: No Preferred Language: Maltese Communication Ability: Effective 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 Beliefs That Will Affect Care: None Current Living Situation: Spouse Feels Safe at Home: Yes Assistive Devices: Glasses Review of Systems Constitutional: + fever, + chills and + anorexia Eyes: no worsening vision Ear, Nose, Mouth, Throat: no hearing loss Respiratory: no cough and no dyspnea Cardiovascular: no chest pain and no dyspnea on exertion Gastrointestinal: + abdominal pain and + change in bowel habits; no nausea and no vomiting Genitourinary: no dysuria Musculoskeletal: no back pain and no neck pain Integumentary: no skin ulcer and no erythema Neurologic: no headache(s) Psychiatric: no behavioral changes and no depression Hematologic / Lymphatic: no easy bleeding and no easy bruising Physical Exam Physical Exam: awake/alert Constitutional: well developed and well nourished; no acute distress Eyes: PERRL, conjunctivae normal, anicteric sclerae ENMT: external ear and nose normal, oropharynx normal Neck: normal visual inspection and trachea midline; no tracheal deviation Respiratory: normal respiratory effort Cardiovascular: RRR, no murmur, no edema Gastrointestinal (Abdomen): Percussion/Palpation: + abdomen tender (ttp in the supra-pubic and LLQ regions) and abdomen soft Musculoskeletal: no cyanosis or clubbing, extremities motor strength 5/5 Skin: no rashes, warm and dry Psychiatric: A+Ox3, euthymic affect Results & Data ([facility]) Vital Signs (Past 12 Hours) Vital Signs Temp Pulse Resp BP Pulse Ox 02/24/21 12:13 62 21 97 02/24/21 12:09 62 17 122/73 96 02/24/21 09:45 36.6 C 75 18 121/[address] WITH IV CONTRAST CT DOSE: 659.75 mGycm HISTORY: lower abd pain, fever TECHNIQUE: Multiaxial CT images of the abdomen and pelvis were performed following the use of intravenous contrast. A dose lowering technique was utilized adhering to the principles of ALARA. COMPARISON STUDY: None. FINDINGS: There is a 3 mm subpleural nodule within the right lower lobe on image 42. No suspicious lytic are blastic osseous lesions. The liver, gallbladder, pancreas, spleen, and adrenal glands are unremarkable. There are few subcentimeter hypodense lesions within the left kidney measuring up to 7 mm. These are technically too small to characterize but statistically represent cyst s. The right kidney enhances normally. No hydronephrosis. Normal caliber abdominal aorta with mild calcified plaque. No retroperitoneal lymphadenopathy. The bladder is unremarkable. The prostate gland is surgically absent. Focal thickening within the mid sigmoid colon with pericolonic fat stranding. There is a 1.8 cm peridiverticular multiloculated gas and fluid collection likely representing a small abscess. Therefore, these findings are consistent with acute diverticulitis. Multiple additional colonic diverticula are identified. Moderate well-formed stool within the colon. No dilated loops of bowel to suggest an obstruction. A small appendiceal stump is identified suggesting prior appendectomy. IMPRESSION: 1. Acute sigmoid diverticulitis with a 1.8 cm peridiverticular abscess. Follow-u p colonoscopy should be performed once the patient's diverticulitis has resolved to exclude the less likely possibility of an underlying colonic lesion. 2. Prior prostatectomy. 3. No evidence for bowel obstruction. 4. A 3 mm indeterminate pulmonary nodule within the right lower lobe. This is low suspicion. However, follow-up recommended as detailed below. Please refer to below summary of Fleischner criteria recommendations for follow- up of incidental CT nodules (Dandy Zelaya, Guidelines for management of small pulmonary nodules detected on CT scans: A statement from the Fleischner Society, Radiology 237: [id number].) SOLID NODULES Solitary nodule size: <6 mm * Low risk patients: no follow-up needed * high risk patients: optional CT at 12 months Solitary nodule size: 6-8 mm * Low risk patients: follow-up at 6-12 months, then consider further follow-up at 18-24 months * high risk patients: initial follow-up CT at 6-12 months and then at 18-24 months if no change Solitary nodule size: >8 mm * either low or high risk patients - consider follow-up CT at 3 months, and/or CT-PET, and/or biopsy Multiple nodules size: <6 mm * Low risk patients: no routine follow-up * high risk patients: optional CT at 12 months Multiple nodules size: 6-8 mm * Low risk patients: follow-up at 3-6 months, then consider further follow-up at 18-24 months * high risk patients: follow-up at 3-6 months, then at 18-24 months if no change Multiple nodules size: >8 mm * Low risk patients: follow-up at 3-6 months, then consider further follow-up at 18-24 months * high risk patients: follow-up at 3-6 months, then at 18-24 months if no change Note: newly detected indeterminate nodule in persons 35 years of age or older. * Low risk patients: minimal or absent history of smoking and/or other known risk factors * high risk patients: history of smoking or of other known risk factors (e.g. first degree relative with lung cancer, or exposure to asbestos, radon, uranium) * if a nodule up to 8 mm is partly solid or is ground glass further follow-up is required after 24 months to exclude possible slow growing adenocarcinoma (CAR) SUBSOLID NODULES Solitary pure ground-glass nodule * nodule size <6 mm - no CT follow-up required * nodule size >=6 mm - follow-up CT at 6-12 months, then every 2 years until 5 years Solitary part-solid nodule * nodule size <6 mm - no CT follow-up required * nodule size >=6 mm - follow-up CT at 3-6 months. If unchanged, and solid component remains <6 mm, then annual follow-up for 5 years Multiple subsolid nodules * nodule size <6 mm - follow-up CT at 3-6 months, consider further follow-up at 2 and 4 years if stable * nodule size >=6 mm - follow-up CT at 3-6 months, subsequent management based on the most suspicious nodule(s) ACT 112: Negative or not required by law. Electronically signed by: Lester Willett M.D. 02/24/2021 12:23 PM PG Care Time/CCT Total # of Minutes Spent Total Time Spent with Patient: Total time spent is greater than 50% in coordination of care (as documented) at patient's floor/unit and/or counseling patient: Coding Level of Care Code 55489 Inpt Consult Level 5 Diagnoses Sigmoid diverticulitis K57.32
--- NOTE | 2021-02-24 13:53 | History & Physical Report ---
Date of Service February 24, 2021 Assessment & Plan (1) Sigmoid diverticulitis: Patient with acute sigmoid diverticulitis, complicated by 1.8 cm abscess Admit to a general medical bed Patient was on Augmentin as an outpatient, changed over to Unasyn in ER, will continue as ordered N.p.o. with sips and chips Surgical consultation pending, patient is likely nonoperative given small size of abscess Low-dose Dilaudid as needed for abdominal pain (2) Hyperglycemia: Patient has held Metformin prior to presentation We will place on sliding scale insulin only (3) Hypertension: Continue metoprolol. Patient discontinued his losartan prior to presentation, can consider restart if blood pressure is elevated or once again cleared for diet (4) Hypercholesterolemia: Continue atorvastatin (5) Psoriatic arthritis: Patient is on Stelara as an outpatient, can resume once acute issues resolve History of Present Illness Chief Complaint: Abdominal pain Primary Care Provider: Ravin Guerin PA-C This is a 66-year-old male with past medical history of diverticulosis, hypertension who presents today complaining abdominal pain. 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 Patient tells me that approximately 4 days ago he started having abdominal pain. This is mostly left lower quadrant. It was of very mild but he noticed that it had worsened after his dog stepped on his belly. While he recognizes his symptoms of diverticulitis. He stopped eating and was drinking only water. He obtained a prescription for Augmentin and took approximately 4 doses. Yesterday he had a call out of work due to the significant abdominal pain. He does feel that he is slightly improved today but he has been having fevers and was concerned after present to the emergency room. CT scan showed a 1.8 cm abscess in the sigmoid colon, patient is now being admitted for IV antibiotics and surgical consultation. Upon my evaluation, he appeared to be in no distress and was otherwise hemodynamically stable. Allergies Allergy/AdvReac Type Severity Reaction Status Date / Time No Known Allergies Allergy Unknown Verified 02/27/20 08:04 Home Medications Medication Instructions Recorded Confirmed Type aspirin 81 mg tablet,delayed 81 mg PO DAILY 11/26/18 02/24/21 History release famotidine 20 mg tablet 20 mg PO DAILY PRN 11/26/18 02/24/21 History ustekinumab 45 mg/0.5 mL See Rx Instructions .ROUTE 01/26/20 02/24/21 Rx subcutaneous syringe .COMPLEX #1 unspecified sildenafil 100 mg tablet 100 mg PO DAILY PRN #14 tab 03/04/20 02/24/21 Rx metoprolol succinate 100 mg 100 mg PO DAILY #90 tab 06/29/20 02/24/21 Rx tablet,extended release 24 hr metformin 500 mg tablet,extended 500 mg PO DAILY #90 tab 08/11/20 02/24/21 Rx release 24hr meclizine 25 mg tablet 25 mg PO TID PRN #30 tab 08/26/20 02/24/21 Rx fluoxetine 20 mg capsule 20 mg PO DAILY #90 cap 11/01/20 02/24/21 Rx losartan 50 mg tablet 50 mg PO DAILY #90 tab 11/01/20 02/24/21 Rx valacyclovir 500 mg tablet 500 mg PO BID #180 tab 02/02/21 02/24/21 Rx amoxicillin 875 mg-potassium 1 tab PO Q12H #20 tab 02/22/21 02/24/21 Rx clavulanate 125 mg tablet atorvastatin 80 mg tablet 80 mg PO QPM #90 tab 02/23/21 02/24/21 Rx gabapentin 300 mg PO HS PRN 02/24/21 02/24/21 History 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 Psoriatic arthritis Surgical History H/O prostatectomy History of appendectomy History of colonoscopy Social History Smoking Status: Never smoker Second Hand Exposure: Yes (as a child); Hx Alcohol Use: Yes Hx Substance Use: No Preferred Language: Bengali Communication Ability: Effective Teaching Aide Required: No Beliefs That Will Affect Care: None Current Living Situation: Spouse Feels Safe at Home: Yes Assistive Devices: Glasses Review of Systems Constitutional: + fever, + chills and + fatigue; no weakness, no weight loss and no weight gain Eyes: as per Subjective / HPI Respiratory: no cough, no chest congestion, no dyspnea and no dyspnea on exertion Cardiovascular: no chest pain, no orthopnea, no palpitations, no lightheadedness and no edema Gastrointestinal: + abdominal pain; no nausea, no vomiting, no constipation and no diarrhea/loose stools Musculoskeletal: no back pain, no neck pain, no joint pain, no stiffness and no myalgia Integumentary: no rash Neurologic: no gait abnormality, no unsteadiness, no falls and no generalized weakness Physical Exam Constitutional: cooperative; no acute distress Eyes: + anicteric sclerae Neck: trachea midline, no thyromegaly Respiratory: normal respiratory effort Auscultation: lungs clear to auscultation bilaterally; no crackles, no rales, no rhonchi and no wheezes Cardiovascular: Rate/Rhythm: regular rate and regular rhythm Heart Sounds: normal S1, normal S2 and + murmur Gastrointestinal (Abdomen): Inspection/Auscultation: abdomen normal to inspection Percussion/Palpation: + abdomen tender and abdomen soft; no guarding, abdomen not rigid and no hepatosplenomegaly Musculoskeletal: no cyanosis or clubbing, extremities motor strength 5/5 Skin: no rashes, warm and dry Results & Data Results & Data ([facility]) Vital Signs (Past 12 Hours) Vital Signs Temp Pulse Resp BP Pulse Ox 02/24/21 12:13 62 21 97 02/24/21 12:09 62 17 122/73 96 02/24/21 09:45 36.6 C 75 18 121/87 94 Diagnostic Findings ABDOMEN AND PELVIS CT WITH IV CONTRAST CT DOSE: 659.75 mGycm HISTORY: lower abd pain, fever TECHNIQUE: Multiaxial CT images of the abdomen and pelvis were performed following the use of intravenous contrast. A dose lowering technique was utilized adhering to the principles of ALARA. COMPARISON STUDY: None. FINDINGS: There is a 3 mm subpleural nodule within the right lower lobe on image 42. No suspicious lytic are blastic osseous lesions. The liver, gallbladder, pancreas, spleen, and adrenal glands are unremarkable. There are few subcentimeter hypodense lesions within the left kidney measuring up to 7 mm. These are technically too small to characterize but statistically represent cysts. The right kidney enhances normally. No hydronephrosis. Normal caliber abdominal aorta with mild calcified plaque. No retroperitoneal lymphadenopathy. The bladder is unremarkable. The prostate gland is surgically absent. Focal thickening within the mid sigmoid colon with pericolonic fat stranding. There is a 1.8 cm peridiverticular multiloculated gas and fluid collection likely representing a small abscess. Therefore, these findings are consistent with acute diverticulitis. Multiple additional colonic diverticula are identified. Moderate well-formed stool within the colon. No dilated loops of bowel to suggest an obstruction. A small appendiceal stump is identified suggesting prior appendectomy. IMPRESSION: 1. Acute sigmoid diverticulitis with a 1.8 cm peridiverticular abscess. Follow- up colonoscopy should be performed once the patient's diverticulitis has resolved to exclude the less likely possibility of an underlying colonic lesion. 2. Prior prostatectomy. 3. No evidence for bowel obstruction. 4. A 3 mm indeterminate pulmonary nodule within the right lower lobe. This is low suspicion. However, follow-up recommended as detailed below. PG Care Time/CCT Total # of Minutes Spent Total Time Spent with Patient: Total time spent is greater than 50% in coordination of care (as documented) at patient's floor/unit and/or counseling patient: Coding Level of Care Code 44966 Initial Inpt Care Lvl 3 Diagnoses Sigmoid diverticulitis K57.32 Hyperglycemia R73.9 Hypertension I10 Hypercholesterolemia E78.00 Psoriatic arthritis L40.50
[2021-02-24] MEDS ORDERED: GLUCOSE 40% GEL 15 GM TUBE PO PRN (16:35)
[2021-02-24] MEDS ORDERED: ACETAMINOPHEN 325 MG TAB PO PRN (16:35)
[2021-02-24] MEDS ORDERED: HYDROmorphone INJ 0.5 MG/0.5 ML SYR IV PRN (16:35)
[2021-02-24] MEDS ORDERED: GLUCOSE 10 TABS/TUBE PO PRN (16:35)
[2021-02-24] MEDS ORDERED: INSULIN ASPART 100 UNITS/ML 3 ML PEN SC SCH (16:35)
[2021-02-24] MEDS ORDERED: ONDANSETRON INJ 2 MG/ML 2 ML VIAL IV PRN (16:35)
[2021-02-24] MEDS ORDERED: GLUCAGON FOR INJ 1 MG VIAL SQ PRN (16:35)
[2021-02-24] MEDS ORDERED: DEXTROSE 50% 50 ML SYRINGE IV PRN (16:35)
[2021-02-24] MEDS ORDERED: CARBOHYDRATES FOR HYPOGLYCEMIA PO PRN (16:35)
[2021-02-24] MEDS ORDERED: MECLIZINE HCL 25 MG TAB PO PRN (16:35)
[2021-02-24] MEDS ORDERED: FAMOTIDINE 20 MG TAB PO PRN (16:35)
[2021-02-24] MEDS ORDERED: Nursing to Pharmacy Communication SCH (17:15)
[2021-02-24] MEDS: SODIUM CHLORIDE 0.9% 1000ML 1,000 ML IV SCH (17:20)
[2021-02-24] MEDS: INSULIN ASPART 100 UNITS/ML 3 ML PEN SC SCH (18:09)
[2021-02-24] MEDS: AMPICILLIN/SULBACTAM SOD 3,000 MG in 0.9 % SODIUM CHLORIDE 100 ML IV SCH (21:38)
[2021-02-24] MEDS: ATORVASTATIN 40 MG TAB PO SCH (21:39)
[2021-02-25] MEDS: INSULIN ASPART 100 UNITS/ML 3 ML PEN SC SCH ×5 (00:17→21:50)
[2021-02-25] MEDS: AMPICILLIN/SULBACTAM SOD 3,000 MG in 0.9 % SODIUM CHLORIDE 100 ML IV SCH ×4 (02:39→20:18)
[2021-02-25] MEDS: SODIUM CHLORIDE 0.9% 1000ML 1,000 ML IV SCH ×2 (02:41→13:50)
[2021-02-25 06:18] LABS: Basophils # (auto) 0.02 K/uL (0-0.2); Basophils % (auto) 0.2 %; Eosinophils # (auto) 0.07 K/uL (0-0.5); Eosinophils % (auto) 0.7 %; Hematocrit (blood only) 36.7 % (42-52); Hemoglobin 12.4 g/dL (14.0-18.0); Immature Granulocytes # (auto) 0.01 K/uL (0.00-0.02); Immature Granulocytes % (auto) 0.1 %; Lymphocytes # (auto) 1.41 K/uL (1.2-3.4); Lymphocytes % (auto) 14.7 %; Mean Corpuscular Hemoglobin 32.5 pg (25-34); Mean Corpuscular Hgb Conc 33.8 g/dL (32-36); Mean Corpuscular Volume 96.1 fL (80-100); Mean Platelet Volume 10.7 fL (7.4-10.4); Monocytes # (auto) 0.77 K/uL (0.11-0.59); Neutrophils # (auto) 7.29 K/uL (1.4-6.5); Neutrophils % (auto) 76.3 %; Platelet Count 216 K/uL (130-400); RDW Coefficient of Variation 13.6 % (11.5-14.5); RDW Standard Deviation 47.5 fL (36.4-46.3); Red Blood Count 3.82 M/uL (4.7-6.1); White Blood Count 9.57 K/uL (4.8-10.8)
[2021-02-25 06:40] LABS: BUN Creatinine Ratio 16.9 (10-20); Calcium 8.2 mg/dl (8.5-10.1); Creatinine Clr Calc Pharmacy 78.9 ml/min; Est GFR (African American) 107.7 ml/min; Est GFR (Non-African American) 92.9 ml/min; Magnesium 2.4 mg/dl (1.8-2.4); Potassium 3.8 mmol/L (3.5-5.1)
[2021-02-25] MEDS: FLUoxetine HCL 20 MG CAP PO SCH (08:08)
[2021-02-25] MEDS: ASPIRIN 81 MG ECTAB PO SCH (08:09)
[2021-02-25] MEDS: METOPROLOL SUCC 50MG EXT REL TAB PO SCH (08:09)
[2021-02-25] MEDS: GABAPENTIN 300 MG CAP PO PRN (08:10)
--- NOTE | 2021-02-25 10:05 | Surgery Progress Note ---
Date of Service February 25, 2021 Assessment & Plan (1) Sigmoid diverticulitis: Patient here with acute sigmoid diverticulitis with peridiverticular abscess WBC improved today 9 (15), afebrile Less tender on examination Okay to advance to clear liquids for today Can consider further diet advancement tomorrow if continues to improve Continue IV abx while hospitalized and complete a course of PO upon discharge [facility] surgery covering over the weekend Admission and Anticipated Discharge Date Admission Date: February 24, 2021 Supervising Physician Co-Signing Physician Notes I personally saw and evaluated the patient with Dinah Chris PA-C and agree with the assessment and plan 66 yo male with acute sigmoid diverticulitis -Improved today, still with pain but less -Trial clears -Will monitor exam and WBC which has normalized -No plans for surgical intervention at this time Subjective Patient feeling slightly improved today, still some lingering abdominal pain. No nausea/vomiting. Passed some small liquid stools. Physical Exam Physical Exam: awake/alert Gastrointestinal (Abdomen): Percussion/Palpation: + abdomen tender (improved tenderness to palpation in supra-pubic and LLQ regions) and abdomen soft Results & Data ([facility]) Vital Signs (Past 12 Hours) Vital Signs Temp Pulse Resp BP Pulse Ox 02/25/21 07:35 36.6 C 60 16 106/70 96 02/25/21 00:05 36.7 C 62 16 112/71 95 PG Care Time/CCT Total # of Minutes Spent Total Time Spent with Patient: Total time spent is greater than 50% in coordination of care (as documented) at patient's floor/unit and/or counseling patient: Coding Level of Care Code 53918 Subseq Hosp Care Lvl 1 Diagnoses Sigmoid diverticulitis K57.32
[2021-02-25] MEDS ORDERED: Nursing to Pharmacy Communication SCH (10:30)
[2021-02-25] MEDS: ATORVASTATIN 40 MG TAB PO SCH (20:19)
[2021-02-26] MEDS: SODIUM CHLORIDE 0.9% 1000ML 1,000 ML IV SCH ×2 (00:02→11:06)
--- NOTE | 2021-02-26 01:43 | Hospitalist Progress Note ---
Date of Service February 25, 2021 Assessment & Plan (1) Sigmoid diverticulitis: Patient with acute sigmoid diverticulitis, complicated by 1.8 cm abscess Patient was on Augmentin as an outpatient, changed over to Unasyn can have liquid diet per surgery no fever, WBC down to 9k from 15k and he feels a lot better, less pain Surgical consultation pending, patient is likely nonoperative given small size of abscess Low-dose Dilaudid as needed for abdominal pain (2) Hyperglycemia: Patient has held Metformin prior to presentation We will place on sliding scale insulin only sugars better toay (3) Hypertension: Continue metoprolol. Patient discontinued his losartan prior to presentation (4) Hypercholesterolemia: Continue atorvastatin (5) Psoriatic arthritis: Patient is on Stelara as an outpatient, can resume once acute issues resolve Admission and Anticipated Discharge Date Admission Date: February 24, 2021 Subjective patient feeling better, less pain, had a BM with some formed stool no fever or chills, tolerating diet appreciate surgery note WBC down to 9k from 15k, continue on Unasyn for time being no chest pain, no dyspnea, no nausea / vomiting Review of Systems Review of Systems: All systems reviewed & are unremarkable except as noted in Subjective Gastrointestinal: + abdominal pain (LLQ); no nausea, no vomiting, no constipation, no diarrhea/loose stools, no blood in stools and no melena Physical Exam Constitutional: well developed, well nourished and comfortable; no acute distress Neck: trachea midline, no thyromegaly Respiratory: normal respiratory effort, lungs clear to auscultation Cardiovascular: RRR, no murmur, no edema Gastrointestinal (Abdomen): Inspection/Auscultation: abdomen normal to inspection and normal bowel sounds; abdomen not distended Percussion/Palpation: + abdomen tender (LLQ) and abdomen soft; no guarding and a bdomen not rigid Musculoskeletal: no cyanosis or clubbing, extremities motor strength 5/5 (arthritic changes in hands bilaterally) Skin: no rashes, warm and dry Neurologic: patellar DTR's 2+ bilat, sensation intact and PERRL, EOMI, accommodation nl, no face palsy, no dysarthria Psychiatric: A+Ox3, euthymic affect Lymphatic: no cervical or axillary lymphadenopathy Results & Data Results & Data ([facility]) Vital Signs (Past 12 Hours) Vital Signs Temp Pulse Resp BP Pulse Ox 06/11/21 22:47 36.7 C 55 L 15 110/71 95 Laboratory Results Laboratory Results - last 24 hr 02/25/21 02/25/21 02/25/21 05:38 05:38 05:38 WBC 9.57 RBC 3.82 L Hgb 12.4 L Hct 36.7 L MCV 96.1 MCH 32.5 MCHC 33.8 RDW Std Deviation 47.5 H RDW Coeff of Noah 13.6 Plt Count 216 MPV 10.7 H Immature Gran % (Auto) 0.1 Neut % (Auto) 76.3 Lymph % (Auto) 14.7 [place] % (Auto) 8.0 Eos % (Auto) 0.7 Baso % (Auto) 0.2 Neut # (Auto) 7.29 H Lymph # (Auto) 1.41 [place] # (Auto) 0.77 H Eos # (Auto) 0.07 Baso # (Auto) 0.02 Immature Gran # (Auto) 0.01 Sodium 141 Potassium 3.8 Chloride 109 H Carbon Dioxide 26 Anion Gap 6.0 BUN 13 Creatinine 0.79 Est Cr Clr Drug Dosing 78.9 Est GFR ( Amer) 107.7 Est GFR (Non-Af Amer) 92.9 BUN/Creatinine Ratio 16.9 Glucose 90 POC Glucose Calcium 8.2 L Magnesium 2.4 Hepatitis C Ab Screen Neg 02/25/21 02/25/21 02/25/21 06:15 12:13 17:22 WBC RBC Hgb Hct MCV MCH MCHC RDW Std Deviation RDW Coeff of Noah Plt Count MPV Immature Gran % (Auto) Neut % (Auto) Lymph % (Auto) [place] % (Auto) Eos % (Auto) Baso % (Auto) Neut # (Auto) Lymph # (Auto) [place] # (Auto) Eos # (Auto) Baso # (Auto) Immature Gran # (Auto) Sodium Potassium Chloride Carbon Dioxide Anion Gap BUN Creatinine Est Cr Clr Drug Dosing Est GFR ( Amer) Est GFR (Non-Af Amer) BUN/Creatinine Ratio Glucose POC Glucose 94 99 115 H Calcium Magnesium Hepatitis C Ab Screen 02/25/21 20:59 WBC RBC Hgb Hct MCV MCH MCHC RDW Std Deviation RDW Coeff of Noah Plt Count MPV Immature Gran % (Auto) Neut % (Auto) Lymph % (Auto) [place] % (Auto) Eos % (Auto) Baso % (Auto) Neut # (Auto) Lymph # (Auto) [place] # (Auto) Eos # (Auto) Baso # (Auto) Immature Gran # (Auto) Sodium Potassium Chloride Carbon Dioxide Anion Gap BUN Creatinine Est Cr Clr Drug Dosing Est GFR ( Amer) Est GFR (Non-Af Amer) BUN/Creatinine Ratio Glucose POC Glucose 84 Calcium Magnesium Hepatitis C Ab Screen Medications Administered Current Inpatient Medications Acetaminophen (Acetaminophen 325 Mg Tab) 650 mg PO Q4H PRN PRN Reason: pain/fever Stop: 03/26/21 16:34 Aspirin (Aspirin 81 Mg Ectab) 81 mg PO DAILY AUGUSTINE Stop: 03/27/21 08:59 Last Admin: 02/25/21 08:09 Dose: 81 mg Documented by: Atorvastatin Calcium (Atorvastatin 40 Mg Tab) 80 mg PO QPM AUGUSTINE Stop: 03/26/21 20:59 Last Admin: 02/25/21 20:19 Dose: 80 mg Documented by: Dextrose (Dextrose 50% 50 Ml Syringe) 25 - 50 ml IV UD PRN; Protocol PRN Reason: Hypoglycemia Protocol Stop: 03/26/21 16:34 Famotidine (Famotidine 20 Mg Tab) 20 mg PO DAILY PRN PRN Reason: Acid Reflux Stop: 03/26/21 16:34 Fluoxetine HCl (Fluoxetine Hcl 20 Mg Cap) 20 mg PO DAILY AUGUSTINE Stop: 03/27/21 08:59 Last Admin: 02/25/21 08:08 Dose: 20 mg Documented by: Gabapentin (Gabapentin 300 Mg Cap) 300 mg PO HS PRN PRN Reason: neuropathy Last Admin: 02/25/21 08:10 Dose: 300 mg Documented by: Glucagon (Glucagon For Inj 1 Mg Vial) 1 mg SQ UD PRN; Protocol PRN Reason: Hypoglycemia Protocol Stop: 03/26/21 16:34 Glucose (Glucose 10 Tabs/Tube) 4 - 8 tabs PO UD PRN; Protocol PRN Reason: Hypoglycemia Protocol Stop: 03/26/21 16:34 Glucose (Glucose 40% Gel 15 Gm Tube) 15 - 30 gm PO UD PRN; Protocol PRN Reason: Hypoglycemia Protocol Stop: 03/26/21 16:34 Hydromorphone HCl (Hydromorphone Inj 0.5 Mg/0.5 Ml Syr) 0.5 mg IV Q6H PRN PRN Reason: Pain Stop: 03/10/21 16:34 Ampicillin Sodium/Sulbactam Sodium 3,000 mg/ Sodium Chloride 108 mls @ 200 mls/hr IV Q6H [facility]; Protocol Stop: 03/06/21 19:59 Last Infusion: 02/25/21 21:19 Dose: Infused Documented by: Sodium Chloride (Nss 1000ml) 1,000 mls @ 100 mls/hr IV .Q10H AUGUSTINE Stop: 03/26/21 16:34 Last Admin: 02/26/21 00:02 Dose: 100 mls/hr Documented by: Insulin Aspart (Insulin Aspart 100 Units/Ml 3 Ml Pen) 0 units SC ACHS AUGUSTINE Stop: 03/26/21 17:59 Last Admin: 02/25/21 21:50 Dose: Not Given Documented by: Meclizine HCl (Meclizine Hcl 25 Mg Tab) 25 mg PO TID PRN PRN Reason: dizziness Stop: 03/26/21 16:34 Metoprolol Succinate (Metoprolol Succ 50mg Ext Rel Tab) 100 mg PO DAILY AUGUSTINE Stop: 03/27/21 08:59 Last Admin: 02/25/21 08:09 Dose: 100 mg Documented by: Miscellaneous (Carbohydrates For Hypoglycemia ) 15 - 30 gm PO UD PRN PRN Reason: Hypoglycemia Protocol Stop: 03/26/21 16:34 Ondansetron HCl (Ondansetron Inj 2 Mg/Ml 2 Ml Vial) 4 mg IV Q6H PRN PRN Reason: Nausea Stop: 03/26/21 16:34 PG Care Time/CCT Total # of Minutes Spent Total Time Spent with Patient: Total time spent is greater than 50% in coordination of care (as documented) at patient's floor/unit and/or counseling patient: Coding Level of Care Code 69116 Subseq Hosp Care Lvl 2 Diagnoses Sigmoid diverticulitis K57.32 Hyperglycemia R73.9 Hypertension I10 Hypercholesterolemia E78.00 Psoriatic arthritis L40.50
[2021-02-26] MEDS: AMPICILLIN/SULBACTAM SOD 3,000 MG in 0.9 % SODIUM CHLORIDE 100 ML IV SCH ×4 (02:58→20:19)
[2021-02-26] MEDS: GABAPENTIN 300 MG CAP PO PRN (08:29)
[2021-02-26] MEDS: METOPROLOL SUCC 50MG EXT REL TAB PO SCH (09:00)
[2021-02-26] MEDS: ASPIRIN 81 MG ECTAB PO SCH (09:00)
[2021-02-26] MEDS: FLUoxetine HCL 20 MG CAP PO SCH (09:00)
[2021-02-26] MEDS: INSULIN ASPART 100 UNITS/ML 3 ML PEN SC SCH ×4 (09:01→21:22)
--- NOTE | 2021-02-26 11:11 | Surgery Progress Note ---
Date of Service February 26, 2021 Assessment & Plan (1) Acute diverticulitis: Subjectively improved over admission Would continue IV antibiotics Can advance to full liquid diet Admission and Anticipated Discharge Date Admission Date: February 24, 2021 Subjective [place] some better last night Had some discomfort this morning although much more mild than when he was admitted Has some discomfort if he strains to urinate Denies nausea and vomiting Tolerated clear liquid diet Physical Exam Gastrointestinal (Abdomen): Inspection/Auscultation: normal bowel sounds; abdomen not distended Percussion/Palpation: + abdomen tender (Mild to deeper palpation in the lower midline) and abdomen soft Results & Data ([facility]) Vital Signs (Past 12 Hours) Vital Signs Temp Pulse Resp BP Pulse Ox 02/26/21 08:23 36.8 C 56 L 16 118/72 99 Laboratory Results 02/26/21 02/25/21 02/25/21 Range/Units 08:20 20:59 17:22 POC Glucose 118 H 84 115 H (70-99) mg/dl 02/25/21 Range/Units 12:13 POC Glucose 99 (70-99) mg/dl
--- NOTE | 2021-02-26 13:42 | Hospitalist Progress Note ---
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 Sigmoid diverticulitis: - CT A/P 02/24: Acute sigmoid diverticulitis with a 1.8 cm peridiverticular abscess. - Patient was on Augmentin x2 days (total of 4 doses) as an outpatient --> converted to Unasyn on admission and continuing with this for IV abx therapy - Has remained afebrile; WBC down to 9k from 15k and he feels a lot better, less pain - Low-dose Dilaudid as needed for abdominal pain; patient has not required any Dilaudid - Surgery consulted. Appreciate their assistance and recommendations as summarized below: - Continue IV abx - Can advance to full liquid diet - Will plan to advance to full liquid diet starting with dinner today - Per radiologist, recommend f/u colonoscopy once diverticulitis has resolved to exclude the less likely possibility of an underlying colonic lesion - F/u with PCP as outpatient to manage colonoscopy scheduling Hyperglycemia: - Patient held home Metformin prior to presentation - We will place on sliding scale insulin only; required only 2 units of insulin this AM Hypertension: - Continue metoprolol 100mg po daily - Patient discontinued his losartan prior to presentation Hypercholesterolemia: - Continue atorvastatin 80mg qPM Psoriatic arthritis: - On Stelara as an outpatient, can resume once acute issues resolve d/c IVF DVT proph - Enoxaparin added (2) Failure of outpatient treatment: (3) Hyperglycemia: (4) Hypertension: (5) Hypercholesterolemia: (6) Psoriatic arthritis: Admission and Anticipated Discharge Date Admission Date: February 24, 2021 Supervising Physician Co-Signing Physician Notes Resident Physician Supervision Note: I independently interviewed and examined the patient and verified the salas history and physical, reviewed labs and image studies and agree with resident Dr. Cheng findings and care plan. Subjective Patient seen and evaluated at bedside this morning. Reports mild increase in LLQ abd pain this AM compared to last night but it is still much improved compared to pain on admission. Did tolerate CLD last night and this AM. No nausea or vomiting. Denies CP, SOB, MARCELINO, lightheadedness, dizziness. Review of Systems Review of Systems: See HPI Physical Exam Physical Exam: GENERAL: No acute distress. Well developed and well nourished. Vital signs reviewed as above. A/O x3. EYES: EOMI. Anicteric sclerae. HENT: Moist mucous membranes. RESPIRATORY: Clear to auscultation bilaterally. No wheezing, rales, or rhonchi. CARDIOVASCULAR: Regular rate and rhythm. No murmurs. ABDOMEN: Soft and non-distended. Mild tenderness to LLQ. No guarding. No rebound. Normal bowel sounds. EXTREMITIES: No edema. Non-tender. SKIN: Warm, dry. NEUROLOGIC: No focal neurological deficits. PSYCHIATRIC: Cooperative. Appropriate mood and affect. Results & Data Results & Data ([facility]) Vital Signs (Past 12 Hours) Vital Signs Temp Pulse Resp BP Pulse Ox 02/26/21 08:23 36.8 C 56 L 16 118/72 99 Resident Activity Tracking Resident Involvement: Resident Care Provided Care Provided: Adult Hospital Medicine
[2021-02-26] MEDS: ATORVASTATIN 40 MG TAB PO SCH (20:19)
[2021-02-27] MEDS: AMPICILLIN/SULBACTAM SOD 3,000 MG in 0.9 % SODIUM CHLORIDE 100 ML IV SCH ×3 (01:34→14:14)
[2021-02-27 05:53] LABS: Hematocrit (blood only) 36.6 % (42-52); Hemoglobin 12.4 g/dL (14.0-18.0); Mean Corpuscular Hemoglobin 32.4 pg (25-34); Mean Corpuscular Hgb Conc 33.9 g/dL (32-36); Mean Corpuscular Volume 95.6 fL (80-100); Mean Platelet Volume 10.4 fL (7.4-10.4); Platelet Count 280 K/uL (130-400); RDW Coefficient of Variation 13.2 % (11.5-14.5); RDW Standard Deviation 46.5 fL (36.4-46.3); Red Blood Count 3.83 M/uL (4.7-6.1); White Blood Count 5.96 K/uL (4.8-10.8)
[2021-02-27] MEDS: FLUoxetine HCL 20 MG CAP PO SCH (08:41)
[2021-02-27] MEDS: ASPIRIN 81 MG ECTAB PO SCH (08:41)
[2021-02-27] MEDS: METOPROLOL SUCC 50MG EXT REL TAB PO SCH (08:42)
[2021-02-27] MEDS: INSULIN ASPART 100 UNITS/ML 3 ML PEN SC SCH ×2 (09:00→13:27)
[2021-02-27] MEDS ORDERED: ENOXAPARIN INJ 40 MG/0.4 ML SYR SQ SCH (09:00)
--- NOTE | 2021-02-27 09:09 | Discharge Summary ---
Date of Service February 27, 2021 Admission HPI Per Admitting Provider This is a 66-year-old male with past medical history of diverticulosis, hypertension who presents today complaining abdominal pain. 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 Patient tells me that approximately 4 days ago he started having abdominal pain. This is mostly left lower quadrant. It was of very mild but he noticed that it had worsened after his dog stepped on his belly. While he recognizes his symptoms of diverticulitis. He stopped eating and was drinking only water. He obtained a prescription for Augmentin and took approximately 4 doses. Yesterday he had a call out of work due to the significant abdominal pain. He does feel that he is slightly improved today but he has been having fevers and was concerned after present to the emergency room. CT scan showed a 1.8 cm abscess in the sigmoid colon, patient is now being admitted for IV antibiotics and surgical consultation. Upon my evaluation, he appeared to be in no distress and was otherwise hemodynamically stable. Admission Exam Per Admitting Provider Constitutional: cooperative; no acute distress Eyes: + anicteric sclerae Neck: trachea midline, no thyromegaly Respiratory: normal respiratory effort Auscultation: lungs clear to auscultation bilaterally; no crackles, no rales, no rhonchi and no wheezes Cardiovascular: Rate/Rhythm: regular rate and regular rhythm Heart Sounds: normal S1, normal S2 and + murmur Gastrointestinal (Abdomen): Inspection/Auscultation: abdomen normal to inspection Percussion/Palpation: + abdomen tender and abdomen soft; no guarding, abdomen not rigid and no hepatosplenomegaly Musculoskeletal: no cyanosis or clubbing, extremities motor strength 5/5 Skin: no rashes, warm and dry Principal Diagnosis Acute Sigmoid Diverticulitis Discharge Exam General: A&Ox3. NAD. Cooperative. HEENT: Atraumatic, normocephalic. Pulm: CTAB A&P. -wheezes, -rales, -rhonchi. Symmetrical chest rise. No increase work of breathing. No respiratory distress. Cardiac: RRR, -mrg. Radial pulses intact and symmetrical. Abdominal: soft, non-distended, mild TTP in LLQ, NA BS x 4 Skin: warm, dry, no rash Discharge Data Allergies Allergy/AdvReac Type Severity Reaction Status Date / Time No Known Allergies Allergy Unknown Verified 02/27/20 08:04 Consultations 02/24/21 12:48 ED Decision to Admit Stat 02/25/21 10:06 Consult General Surgery Routine Ordered Studies 02/24/21 10:36 CT abd pelvis IV con only Stat Hospital Course (1) Acute diverticulitis: Dale Prince is a 66 yo male who was admitted to [facility] from 02/24 - 02/27 for acute sigmoid diverticulitis, complicated by 1.8cm peridiverticular abscess. Sigmoid diverticulitis: - CT A/P 02/24: Acute sigmoid diverticulitis with a 1.8 cm peridiverticular abscess. - Surgery consulted and recommended abx without plans for surgical intervention - Patient was on Augmentin x2 days (total of 4 doses) as an outpatient --> conve rted to Unasyn on admission, transition back to Augmentin 875/125mg PO BID after discharge for another 7 days - Pain controlled with minimal use of IV Dilaudid, advanced to low-fiber diet over the course of 2 days without complications - Recommend outpatient colonoscopy in 6-8 weeks; patient will f/u with PCP as outpatient to manage colonoscopy scheduling Hyperglycemia: - Continue home Metformin after discharge Hypertension: - Continue home metoprolol 100mg PO daily after discharge - Patient discontinued his losartan prior to presentation Hypercholesterolemia: - Continue atorvastatin 80mg qPM after discharge Psoriatic arthritis: - On Stelara as an outpatient, can resume once acute issues resolve Total Time Total Time Spent Total Time Spent (In Minutes): 30 minutes Total Time Includes: Examination of the Patient, Discharge Planning and Medication Reconciliation Discharge Plan Discharge Items Patient Disposition: Home - Self-Care Reason For Visit: DIVERTICULITIS Discharge Diagnosis: Diverticulitis Condition on Discharge: Fair Activity: Resume your previous activity Non-emergency contact: Primary Care Provider Call non-emergency contact if: you have any medication questions, your symptoms worsen, your pain is not controlled and you have a fever Follow-up/Referrals: Ravin Guerin PA-C [Primary Care Provider] - Ninfa Vaca MD [Physician] - 03/04/21 2:00 pm Diet: Regular Addtl Attending Provider Instructions: You were admitted to [facility] from 02/24 - 02/27 for acute complicated sigmoid diverticulitis, with peridiverticular abscess. Our surgeons were consulted, given the abscess, and they did not recommend any surgical intervention. You were started on IV antibiotics (IV Unasyn) for the diverticulitis. You did well with this medication and you required minimal IV pain medications for overall well-controlled abdominal pain. You were also given a short bowel rest, and you were slowly advanced to a low-fiber diet over the course of 2 days without issues or complications. You will be discharged on 02/27 in improved, stable condition. You should take Augmentin twice per day, starting tonight, for 7 more days. You can take Tylenol and/or Ibuprofen as needed for ongoing abdominal pain. You should maintain a low-fiber diet for at least 1-2 weeks to ensure that your sigmoid colon continues to heal. You should follow up closely with your PCP, within 1 week, and you should continue to take all of your home medications as scheduled. It was a pleasure to help provide your care while you were hospitalized. We hope you continue to feel better. Pending Studies at Discharge: No Stand-Alone Forms: My [facility], Smoking Cessation Medications and DC Order Prescriptions: Continued aspirin 81 mg tablet,delayed release (DR/EC) 81 mg PO DAILY RF: 0 famotidine [Pepcid] 20 mg tablet 20 mg PO DAILY PRN (Reason: Acid Reflux) RF: 0 ustekinumab [Stelara] 45 mg/0.5 mL syringe See Rx Instructions .ROUTE .COMPLEX Qty: 1 RF: 3 sildenafil 100 mg tablet 100 mg PO DAILY PRN (Reason: sexual activity) Qty: 14 RF: 11 metoprolol succinate 100 mg tablet extended release 24 hr 100 mg PO DAILY Qty: 90 RF: 3 metformin 500 mg tablet extended release 24hr 500 mg PO DAILY Qty: 90 RF: 3 meclizine 25 mg tablet 25 mg PO TID PRN (Reason: dizziness) Qty: 30 RF: 1 fluoxetine [Prozac] 20 mg capsule 20 mg PO DAILY Qty: 90 RF: 3 losartan 50 mg tablet 50 mg PO DAILY Qty: 90 RF: 3 valacyclovir 500 mg tablet 500 mg PO BID Qty: 180 RF: 3 amoxicillin-pot clavulanate [Augmentin] 875-125 mg tablet 1 tab PO Q12H Qty: 20 RF: 0 atorvastatin 80 mg tablet 80 mg PO QPM Qty: 90 RF: 3 gabapentin 300 mg Tablet 300 mg PO HS PRN (Reason: neuropathy) RF: 0 Discharge Orders: Discharge Order (Routine); Ordered 02/27/21 Ordered By: Rodrigo Moraes/Other Patient Handouts: Discharge Instructions for ... Admission Data Admit Date/Time: 02/24/21 14:01 Attending Provider: Ninfa Vaca Admit Provider: Richard Amin Primary Care Provider: Ravin Guerin Other Providers: Richard Amin ; Pro Danielle ; David Rubalcava Other Interventions: Discharge Summary Assessment (RN) Last Done: 02/27/21 14:25 Supervising Physician Co-Signing Physician Notes Resident Physician Supervision Note: I independently interviewed and examined the patient and verified the salas history and physical, reviewed labs and image studies and agree with resident Dr. Perez findings and care plan. Resident Activity Tracking Resident Involvement: Resident Care Provided Care Provided: Adult Hospital Medicine
--- NOTE | 2021-02-27 12:10 | Surgery Progress Note ---
Date of Service February 27, 2021 Assessment & Plan (1) Acute diverticulitis: Continues to improve subjectively Exam is improved Tolerated full liquid diet and is now going to have a regular diet breakfast If tolerates that can be discharged on oral antibiotics Will need colonoscopy in approximately 2 months Admission and Anticipated Discharge Date Admission Date: February 24, 2021 Subjective Feels well today Tolerated full liquid diet Denies nausea and vomiting Still has very minimal discomfort in the lower midline Physical Exam Gastrointestinal (Abdomen): Inspection/Auscultation: normal bowel sounds; abdomen not distended Percussion/Palpation: + abdomen tender (Minimal tenderness in the lower midline) and abdomen soft Results & Data ([facility]) Vital Signs (Past 12 Hours) Vital Signs Temp Pulse Resp BP Pulse Ox 02/27/21 08:43 36.5 C 55 L 16 136/85 98 02/27/21 08:19 36.6 C 55 L 16 128/76 97 Laboratory Results 02/27/21 02/27/21 02/26/21 Range/Units 08:14 05:36 20:14 WBC 5.96 (4.8-10.8) K/uL RBC 3.83 L (4.7-6.1) M/uL Hgb 12.4 L (14.0-18.0) g/dL Hct 36.6 L (42-52) % MCV 95.6 (80-100) fL MCH 32.4 (25-34) pg MCHC 33.9 (32-36) g/dL RDW Std Deviation 46.5 H (36.4-46.3) fL RDW Coeff of Noah 13.2 (11.5-14.5) % Plt Count 280 (130-400) K/uL MPV 10.4 (7.4-10.4) fL POC Glucose 110 H 138 H (70-99) mg/dl 02/26/21 02/26/21 Range/Units 17:13 12:17 WBC (4.8-10.8) K/uL RBC (4.7-6.1) M/uL Hgb (14.0-18.0) g/dL Hct (42-52) % MCV (80-100) fL MCH (25-34) pg MCHC (32-36) g/dL RDW Std Deviation (36.4-46.3) fL RDW Coeff of Noah (11.5-14.5) % Plt Count (130-400) K/uL MPV (7.4-10.4) fL POC Glucose 86 202 H (70-99) mg/dl
== END 2021-02-27 15:51 | disposition home or self-care (01) | DRG 392 ==
LOC: ED 09:40 → SUATTDRO 14:01 → 3E 14:01

== ENCOUNTER 2023-10-18 07:55 | Inpatient (IN) ==
--- NOTE | 2023-10-15 10:33 | Anesthesiology Consultation ---
Date of Service October 15, 2023 Assessment & Plan (1) Encounter for pre-operative examination: - Check BSG AM DOS - Infectious disease screening: Per assessment on 10/10/23: No known infectious disease contacts or current infectious disease symptoms. No noted recent Covid positive test result. 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 Patient was recently on vacation with his family and extended family and on 03/31/2023 he developed left lower quadrant pain/cramps consistent with his flares of acute diverticulitis. However this time the pain he had in his left lower quadrant radiated into his scrotum and testicles and was relatively severe. He converted himself to a clear liquid diet and started himself on Augmentin 875 mg b.i.d. and completed a 10 day course. Because he had the pain into his testicles and scrotum he did a self examination and noticed 2 round cystic lesions of his right epididymis both and at the head and the tail -- which he never noticed before. He is no longer having pain or discomfort into his testicles or scrotum nor does he have any residual abdominal or pelvic pain related to his diverticulitis. Patient denies any fevers, chills, or night sweats. Patient has not had any urethral discharge. He is in a stable monogamous relationship with his . Patient has a history of prostate cancer and underwent a nerve-sparing prostatectomy approximately 15 years ago. He still gets up about every 3 hours to urinate at night, this has not changed. These 2 epididymal masses are like epididymal cysts/ small spermatoceles and they are most likely benign. Recommend a scrotal/testicular ultrasound to confirm this diagnosis.. Patient has been hospitalized for his diverticulitis in the past and he did have a microperforation with a 1.8 cm abscess formation in February 2021. He was treated with IV antibiotics and his condition improved. He was seen by General Surgery as well -- and they recommended a follow-up colonoscopy 2 months after he recovered in the never going to determine whether or not he should have a partial colectomy. Patient did not get his follow-up colonoscopy -- so he will need to have a colonoscopy done. His most recent episode of acute diverticulitis had its onset on 03/31/2023. He took a full course of Augmentin and made dietary changes -- and his symptoms subsequently resolved. Recommend the following: --Schedule for a Colonoscopy with Dr. Hill. --Keep a supply of Augmentin on hand to be started at the onset of diverticulitis flare.. I will contact the patient with the results of his laboratories, testicular ultrasound, and colonoscopy. Consider referral to General Surgery regarding ongoing management of diverticulosis coli with recurrent acute diverticulitis flares. Return to the office as needed, or in 1 year for routine follow-up." - Colonoscopy (08/17/23): MAC at [facility]. No issues noted per post-op anesthesia progress note. - General surgery (10/01/23): "At this point in time I believe we are running out of good options to try and control his symptoms. He is essentially always in the midst of chronic diverticulitis with flares of acute diverticulitis soon as he stops antibiotics. We discussed laparoscopic sigmoid colectomy. We discussed the inherent risks of this which include bleeding infection injury to another organ such as ureter bladder etc., anastomotic leak or stricture, DVT, PE, MD, CVA etc. We also discussed the possibility of needing to make an open incision. I agree with Dr. Pereira that now would be an opportune time since he is due for a dose of Stelara we can skip that and proceed with the operation. We discussed reasonable expectations are to postoperative recovery work r estrictions physical limitations etc. Following our discussion I answered all questions. Will proceed in the near future with laparoscopic sigmoid colectomy." Chart Review Chart Review: Acceptable Risk for Surgery (pending evaluation DOS) and Patient NOT seen in Pre Admission Testing History Surgery Operation Date: 10/18/23 08:15 Proposed Procedures p Laparoscopic Sigmoid Colectomy - Neel Carrillo, DO Height/Weight Height: 5 ft 5 in Weight: 66.678 kg Allergies Allergy/AdvReac Type Severity Reaction Status Date / Time No Known Allergies Allergy Unknown Verified 10/10/23 12:42 Medications Home Medications Medication Instructions Recorded Confirmed Last Taken aspirin 81 mg tablet,delayed 81 mg PO QAM 11/26/18 10/10/23 08/14/23 release famotidine 20 mg tablet (Pepcid) 20 mg PO DAILY PRN Acid Reflux 11/26/18 10/10/23 08/31/19 08:00 fluoxetine 20 mg capsule (Prozac) 20 mg PO DAILY #90 caps 11/07/22 10/10/23 08/17/23 02:00 cyclobenzaprine 10 mg tablet 10 mg PO TID PRN muscle spasm #90 01/24/23 10/10/23 Unknown tabs valacyclovir 500 mg tablet 500 mg PO BID #180 tabs 02/21/23 10/10/23 08/16/23 atorvastatin 80 mg tablet 80 mg PO QPM #90 tabs 02/27/23 10/10/23 08/16/23 metformin 500 mg tablet,extended 1,000 mg (2 x 500 mg) PO BID #360 07/20/23 10/10/23 08/17/23 02:00 release 24hr (osmotic) tabs tadalafil (pulm. 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 demyelination Degenerative cervical spinal stenosis Diverticulosis Dyslipidemia GERD (gastroesophageal reflux disease) History of atrial fibrillation Follows with [facility] History of diverticulitis hx microperforation with abscess formation History of prostate cancer s/p prostatectomy Hypertension Lumbar and sacral arthritis Lumbar degenerative disc disease Lumbar disc herniation L3-4 Lumbar disc herniation Lumbar radiculopathy Lumbosacral radiculopathy at L4 Neck pain Psoriasis Psoriatic arthritis Sleep apnea CPAP Type 2 diabetes mellitus Ulnar nerve palsy Past Family History Family History Father Cancer Diabetes Mother Hypertension Uncle Colorectal cancer Uncle Colorectal cancer Past Surgical History Surgical History H/O prostatectomy History of appendectomy History of colonoscopy Social History Smoking Status: Never smoker Do You Dip or Chew Tobacco: No Hx Alcohol Use: Yes Alcohol type: beer and wine alcohol intake frequency: a few times a month Hx Substance Use: No substance use type: does not use Lab Results Anesthesia Preop Results Results Anesthesia Widget: WBC 8.54 K/ul (4.8-10.8) 10/12/23 Hgb 13.1 g/dl (14.0-18.0) L 10/12/23 Hct 40.0 % (42.0-52.0) L 10/12/23 Plt 319 K/uL (130-400) 10/12/23 Na 133 mmol/L (136-145) L 10/12/23 K 4.0 mmol/L (3.5-5.1) 10/12/23 Cl 101 mmol/L (98-107) 10/12/23 CO2 23 mmol/L (21-32) 10/12/23 BUN 17 mg/dl (6-23) 10/12/23 Creat 0.90 mg/dl (0.6-1.4) 10/12/23 Glucose Level 95 mg/dl (70-99(Fasting)) 10/12/23 HA1c 7.0 % (4.5-5.6) H 10/12/23 Testing Electrocardiogram Date: 10/12/23 Findings: + NSR @ (72) Stress Test Date: 10/12/23 Negative stress echo/ECG for ischemia at 76%MPHR. 9.1 METS. EF 60%. No wall motion abnormalities. Mild LAD. Mild MR. Other Testing Scrotal ultrasound Date: 04/27/23 FINDINGS: Right testis: 40 x 25 x 33 mm. There are no intratesticular masses. Normal color flow. Trace hydrocele. A 1 cm calcified nodule at the tail the epididymis. This favors a granuloma. This corresponds to the patient's palpable abnormality. No additional abnormalities at the patient's second area of interest at the right testis. Left testis: 50 x 34 x 26 mm. There are no intratesticular masses. Normal color flow. Small hydroceles noted. There is a lobular cyst superior to the testis measuring 5 cm with internal echoes. This is consistent with a spermatocele. There is also a 4 mm cyst within the epididymis. IMPRESSION: A 1 cm calcified nodule at the tail of the right epididymis. This corresponds to the patient's palpable abnormality and favors a granuloma. A 5 cm left spermatocele. Normal testes. Small bilateral hydroceles. Abdomen/Pelvis CT Date: 09/06/23 FINDINGS: Stable 4 mm nodule within the right lower lobe on image 46. This is likely benign given the greater than 2 year stability. The left lung base is clear. No pneumoperitoneum. No pneumatosis. No acute fractures identified. Mild coronary artery calcifications are present. The liver, gallbladder, pancreas, spleen, and adrenal glands are unremarkable. The main portal vein is patent. Mild calcified plaque within the normal caliber abdominal aorta. No retroperitoneal or pelvic lymphadenopathy. No pelvic free fluid. Stable left renal hypodense lesions measuring up to 9 mm project technically too small to characterize but statistically represent cysts. Normal right kidney. No hydronephrosis. Prior prostatectomy. Multiple colonic diverticula. There is an inflamed diverticulum along the undersurface of the mid sigmoid colon best seen on image 317 with surrounding pericolonic fat stranding. This is consistent with an acute diverticulitis. This abuts the bladder, likely accounts for the mild bladder wall thickening at this location. However, no fistula identified at this time. No perforation or pericolonic abscess identified. No dilated loops of bowel to suggest an obstruction. Prior appendectomy. IMPRESSION: Acute sigmoid diverticulitis as described above. No perforation or abscess at this time. The inflamed diverticulum at the mid sigmoid colon abuts the bladder dome and likely accounts for the focal bladder wall thickening at this location. No evidence for a fistula at this time. Prior prostatectomy.
[~2023-10-18 07:55] MED LIST changes: -ASPEC81 PO; -ATOR-22 PO; +CIPROFLOXACIN / D5W 400 MG/200 ML BAG IV SCH; -CLB200 PO; +DEXAMETHASONE SOD INJ 4 MG/ML VIAL ONE; -FAMO20TA11 PO; -FLUO20CA35 PO; +HEPARIN SOD 5,000 UNIT/0.5 ML VIAL SQ SCH; +LACTATED RINGER'S 1,000 ML IV SCH; +LIDOCAINE 2% 2 ML VIAL/AMP(20MG/ML) INFIL ONE; -METO100T14 PO; +ONDANSETRON INJ 2 MG/ML 2 ML VIAL ONE; +PROPOFOL IV EMULSION 10 MG/ML 20 ML VIAL IV ONE; +ROCURONIUM BROMIDE 10 MG/ML 5 ML VIAL IV ONE; +metroNIDAZOLE 500 MG/100 ML BAG IV SCH
--- NOTE | 2023-10-18 08:00 | History & Physical Bridge Note ---
Date of Service October 18, 2023 History & Physical Bridge Note I have examined the patient, reviewed the History & Physical and in the interval since the performance of the History & Physical I have noted the following changes of clinical significance: no changes noted
[2023-10-18] MEDS ORDERED: MIDAZOLAM HCL 1 MG/ML 2ML VIAL ONE (08:48)
[2023-10-18] MEDS ORDERED: fentaNYL citrate PF 100 MCG/2 ML VIAL ONE ×3 (08:48→11:29)
[2023-10-18] MEDS ORDERED: ONDANSETRON INJ 2 MG/ML 2 ML VIAL IV PRN (09:02)
[2023-10-18] MEDS ORDERED: ATROPINE SULFATE 0.1 MG/ML 10ML SYR IV PRN (09:02)
[2023-10-18] MEDS ORDERED: ePHEDrine sulfate 50 MG/ML AMP IV PRN (09:02)
[2023-10-18] MEDS ORDERED: BUPIVACAINE/EPINEPHRINE 0.5% MPF 1:200,000 30 ML VIAL ONE (09:27)
[2023-10-18] MEDS ORDERED: ROCURONIUM BROMIDE 10 MG/ML 5 ML VIAL IV ONE (10:11)
--- NOTE | 2023-10-18 11:06 | Procedure Note ---
Procedure Note Date of Service October 18, 2023 Note Prior to today's operation, Dr. 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 Standard precaution, after freeing the colon from the bladder, Dr. aCrrillo asked me to help evaluate the bladder to be sure we did not need to perform any bladder repair. As he showed me his dissection plane, it appears that he may have dissected against the detrusor muscle but certainly not perforated into the bladder. I distended the bladder fully with 300+ cc of normal saline and there was no evidence of leak. Inspecting the area where the bladder had been adherent to the colon, there was no visible thinning that warranted repair. I did scrub and palpate the area with the laparoscopic instruments. This area was quite indurated and thickened. I believe there is more than sufficient detrusor muscle existing that he should heal adequately. For now, I believe allowing Collins drainage and the lack of distention of the bladder will allow complete recovery in a short period of time. We will plan to leave a Collins for 5 to 7 days. We also discussed trying to place a bit of omentum against this area of the bladder in between it and the ultimate anastomosis of his colon. After my evaluation, Dr. 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
[2023-10-18] MEDS ORDERED: ePHEDrine sulfate 50 MG/ML AMP ONE (11:44)
[2023-10-18] MEDS ORDERED: SUGAMMADEX SODIUM 200 MG/2 ML VIAL IV ONE (12:22)
[2023-10-18] MEDS: fentaNYL citrate PF 100 MCG/2 ML VIAL IV PRN ×2 (12:59→13:06)
[2023-10-18] MEDS: HYDROmorphone INJ 1 MG/ML SYRINGE IV PRN ×6 (13:18→14:04)
--- NOTE | 2023-10-18 13:50 | Anesthesiology Progress Note ---
Date of Service October 18, 2023 Anesthesia Post Procedure Vital Signs Vital Signs: Temp Pulse Pulse Resp BP Pulse Ox O2 Del Method 10/18/23 13:40 70 16 136/81 95 Nasal Cannula 10/18/23 13:30 68 21 138/84 97 Nasal Cannula 10/18/23 13:20 68 20 138/82 98 Nasal Cannula 10/18/23 13:10 69 21 140/85 94 Nasal Cannula 10/18/23 13:00 71 22 152/88 H 95 Oxymask 10/18/23 12:50 97.7 F 79 23 132/86 100 Oxymask 10/18/23 08:40 98.1 F 69 18 125/79 95 Room Air O2 Flow Rate 10/18/23 13:40 2 10/18/23 13:30 2 10/18/23 13:20 2 10/18/23 13:10 2 10/18/23 13:00 4 10/18/23 12:50 6 10/18/23 08:40 Pain Intensity Abdomen: Pain Intensity: 5 Transfer of Care Handoff Completed per policy Notes Mental Status: alert / awake / arousable and participated in evaluation Patient Amnestic to Procedure: Yes Nausea / Vomiting: adequately controlled Pain: adequately controlled Airway Patency, RR, SpO2: stable & adequate BP & HR: stable & adequate Hydration State: stable & adequate Anesthetic Complications: no major complications apparent and Pt Satisfied with anesthetic care
--- NOTE | 2023-10-18 14:16 | Operative Report ---
PG Post Operative Report Pre & Post Diagnosis Operation Date: 10/18/23 09:25 Pre-Op Diagnosis: Diverticulitis Post-Op Diagnosis: Diverticulitis I identified the patient and participated in the time-out.: Yes Procedure Operation Date: 10/18/23 09:25 Actual Procedures p Laparoscopic Sigmoid Colectomy(Not Applicable) - Neel Carrillo DO Surgeon Neel Carrillo DO Back Roller arin smyth Estimated Blood Loss 200 Findings Consistent with Post-Op Diagnosis Specimens sigmoid colon Description of Procedure After informed consent was obtained the patient was taken to the operating room and placed in supine position. After successful intubation a nasogastric tube as well as Collins catheter were placed. The patient was then placed in a low lithotomy position. The abdomen was shaved and sterilely prepped and draped in usual fashion. I began with a periumbilical incision with an 11 blade scalpel. This was carried down through the soft tissue using cautery. The anterior fascia was opened using cautery and 2 #0 Vicryl stay sutures were placed. Peritoneum was elevated with hemostats and incised under direct vision using a Metzenbaum scissor. Finger sweep was performed. A 12 mm Felton trocar was placed and the abdomen was insufflated to 18 mmHg. Laparoscope was inserted and the abdomen was examined in 360 degrees. The patient was placed in a Trendelenburg position and slightly airplaned to the right. I placed a right lower quadrant 12 mm trocar a right mid abdominal 5 mm trocar and eventually a left lower quadrant 5 mm trocar. The sigmoid colon was thickened/ chrnoically inflamed. The area involved was a relatively short segment but had severe chronic inflammation. It was twisted and extremely adherent to the dome of the urinary bladder. I began by using blunt dissection as well as harmonic scalpel to take down the sigmoid colon. I had to essentially create a plane between the colon and the bladder itself. I tried favoring the side of the bladder so as not to perforate the colon. Once I had this completely taken down I obtained an intraoperative consult by Dr. Ermias Doyle. Please see his note. Essentially we distended the bladder with fluid. There was no evidence of any injury to the urinary bladder. His advice was to simply keep the Collins catheter for 5 to 7 days postoperatively. Next I began taking down the colon attachments laterally along the white line of Toldt. I carried this up proximally as well as distally to the peritoneal reflection. I was able to identify the left ureter to keep it out of harm's way. Next I used the harmonic scalpel to create a window in the mesentery of the rectosigmoid distal to the area of inflammation. A SIDNEY purple cartridge linear stapler x 2 was used to transect the rectosigmoid colon. I then took down the mesentery again using the harmonic scalpel. I carried this proximal until we had good normal-appearing large bowel. Next we extended the left lower quadrant trocar site incision including the fascia. The colon was delivered out through this incision after toweling it off. We clamped the large bowel proximal and then divided it using a Jade scissor and sent the specimen to pathology. 2-0 silk was used to create a hand sewn pursestring. I then used sizers to estimate the lumen size of the colon to be 31 mm. The anvil of a 31 mm circular stapler was placed and the pursestring used to secure it. There appeared to be good blood flow with no evidence of ischemia. The anvil and colon were placed back into the abdomen. At this point we all changed our gloves. I closed the fascia of the left lower quadrant incision using 0 PDS in a running fashion. Next we re-insufflated the abdomen. We brought sizers in through the rectal stump initially followed by the 31 mm handle of a circular stapler. The spike was deployed anterior to the staple line. The anvil was connected to the handle, they were secured together and fired creating a circular anastomosis. Both donuts were intact and were sent to the lab. We insufflated the anastomosis under water and it was in fact completely airtight. There was no evidence of ischemia. The pelvis was thoroughly irrigated. There was adequate hemostasis. The anastomosis also appeared to be tension-free. After final look around the abdomen and a final irrigation I did bring some omentum down and placed it between the colon and the inflamed portion of the dome of the urinary bladder. A 10 flat Zion-Luz drain was also placed in the pelvis and brought out through the right lower quadrant trocar site. It was secured to the skin using 0 Vicryl. All the trocars were removed and the abdomen desufflated. The fascia of the camera port was closed using 0 Vicryl in a [id number] fashion. All the wounds were irrigated and closed using skin connor. The larger incision was closed over quarter inch [place] drain. Silver dressings were applied. Marcaine had been injected around them prior to placing dressings. Patient was awakened extubated and transferred recovery in stable condition. My AUTOMOTIVE DESIGN LAYOUT DRAFTER was present throughout the entire case was ins trumental in running the camera, assisting with the dissection, assisting with the anastomosis, wound closure and dressing placement. I attest to the content of the Intraoperative Record and any orders documented therein. Any exceptions are noted below.
[2023-10-18] MEDS ORDERED: GLUCOSE 40% GEL 15 GM TUBE PO PRN (14:39)
[2023-10-18] MEDS ORDERED: GLUCOSE 10 TAB/TUBE PO PRN (14:39)
[2023-10-18] MEDS ORDERED: DEXTROSE 50% 50 ML SYRINGE IV PRN (14:39)
[2023-10-18] MEDS ORDERED: CARBOHYDRATES FOR HYPOGLYCEMIA PO PRN (14:39)
[2023-10-18] MEDS ORDERED: GLUCAGON FOR INJ 1 MG VIAL SQ PRN (14:39)
[2023-10-18] MEDS ORDERED: oxyCODONE HCL IR 5 MG TAB (IMMEDIATE RELEASE) PO PRN ×2 (14:39)
[2023-10-18] MEDS ORDERED: HYDROmorphone INJ 0.5 MG/0.5 ML SYR IV PRN ×2 (14:39)
[2023-10-18] MEDS ORDERED: PHARMACY GLYCEMIC MGMT CONSULT PRN (14:39)
--- NOTE | 2023-10-18 14:56 | Pharmacy Report ---
Pharmacy Glycemic Short Note 2 - Date of Service October 18, 2023 - Glycemic Short BSG Results (Last 24 hours): 10/18/23 10/18/23 08:49 13:13 POC Glucose 136 H 159 H OUTPATIENT ANTIDIABETIC REGIMEN: * Metformin 1g PO BID * A1c 7.0% 10/12/23 ASSESSMENT: * 68 yo Male s/p Laparoscopic Sigmoid Colectomy, type 2 DM on metformin at home, received 4mg IV Dexamethasone preop. * Will begin basal bolus insulin for glycemic control, will need to loosen parameters over next two days as steroid effects wear off. PLAN FOR INPATIENT GLYCEMIC CONTROL: * Hold outpatient oral diabetes medications * Basal insulin * Lantus 15 units SQ x1 dose now, then 15 units HS for BSG > 180mg/dl, further basal dosing in AM * Bolus insulin * NovoLog per scale ACHS or Q6hrs while NPO * Goal Range: Low 110 mg/dL - High 140 mg/dL * Correction Factor: 30 mg/dL/unit * Nutritional / Prandial insulin per carb ratio of 1 unit per 10 grams CHO consumed
[2023-10-18] MEDS: LACTATED RINGER'S 1,000 ML IV SCH ×2 (15:01→22:16)
[2023-10-18] MEDS: ACETAMINOPHEN 1,000 MG/100 ML VIAL IV SCH ×2 (15:02→22:08)
[2023-10-18] MEDS ORDERED: LANTUS PER UNIT CHARGE SC ONE ×2 (15:15→21:00)
[2023-10-18] MEDS: INSULIN ASPART PER UNIT CHARGE SC SCH ×2 (17:05→17:35)
[2023-10-18] MEDS: metroNIDAZOLE 500 MG/100 ML BAG IV SCH (17:05)
--- NOTE | 2023-10-18 17:59 | Consultation ---
Date of Consultation October 18, 2023 Assessment & Plan (1) Sigmoid diverticulitis: s/p laparoscopic sigmoid resection with end-to-end anastomosis by Dr Neel Carrillo today. This was done electively due to chronic, recurrent sigmoid diverticulitis. There was evidence of chronic inflammation of the sigmoid during the case today. 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 Defer IV fluids, pain meds, diet advancement, DVT proph, disposition to primary gen surg team. (2) Type 2 diabetes mellitus: Hold metformin. Pharmacy to provide glycemic oversight. He will be on basal-bolus insulin. Recent a1c noted (7%). Thus far BSGs are reasonable post-op. Watch for hyperglycemia given dillon-operative stress & dexamethasone administration. (3) Hypertension: BPs controlled post-op. Will hold AM losartan pending his POD #1 creatinine on labs. Continue metoprolol. (4) Dyslipidemia: Lipitor currently on hold but can be resumed at any time post-op. Most recent lipid profile was on 10/12/23 and LDL was very low in the 40s. (5) Sleep apnea: Patient declines using a hospital-issued unit for tonight, but his spouse will bring in his home unit for subsequent use. (6) GERD (gastroesophageal reflux disease): Continue H2 lucina. (7) Psoriatic arthritis: Follows with Dr Gordon Pereira, [facility] [place] [facility]. Ustekinumab has been on hold pre-op in preparation for this surgery. Defer resumption of his biological agent to his outpatient providers in the future. Arthritis is largely stable at this time. (8) Anemia: Mild, normocytic (MCV 90s). Consider B12, folate, Fe studies. CBC in am for stability. 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 No documented episodes since. Examines in NSR post-op this evening. (10) Hyponatremia: mild, Na level 133 on pre-op labs simply repeat BMP am currently receiving LR at 125cc/hr he is not on chronic diuretic therapy at home (11) DVT prophylaxis: defer selection of chemical DVT proph to primary surgical team Plan Thank you for this consult. We will follow with you. History of Present Illness Requesting Physician: Neel Carrillo DO Reason for Consultation: post-operative medical management Attending Physician: Neel Carrillo, DO History of Present Illness Suresh is a very pleasant 68yo male with long-standing psoriatic arthritis on chronic ustekinumab, T2DM, HTN, hyperlipidemia, prostate cancer s/p prostatectomy, NOAH on CPAP, and recurrent sigmoid diverticulitis who presented today for elective laparoscopic sigmoid resection with end-to-end anastomosis by Dr Carrillo. I saw Dr Prince post-op on the med/surg unit and he was resting comfortably. He reported only mild abdominal pain. No nausea or emesis. No dyspnea. No chest pain. Chart review shows he has had multiple episodes of sigmoid diverticulitis over the last few years, and in late 2022 had refractory sigmoid diverticulitis requiring prolonged courses of oral antibiotics. He had 1 episode of sigmoid diverticulitis several years ago complicated by diverticular abscess. Dr Prince states he most recently took a 30-day course of antibiotics for his diverticulitis and upon completion of that course his abdominal pain returned. Thus, preparations were being made for elective resection of the sigmoid colon for refractory/chronic/smoldering diverticulitis. Dr Prince states that he is compliant with his CPAP for NOAH. He has auto-CPAP with pressure range of 8 to 18 cm of H20. His will be bring in his home unit tomorrow. With respect to his T2DM he is not consistent in checking his BSGs. I did mention to him that he received perioperative dexamethasone and he may ex perience transient hyperglycemia for 1-2 days due to this. Allergies Allergy/AdvReac Type Severity Reaction Status Date / Time No Known Allergies Allergy Unknown Verified 10/10/23 12:42 Home Medications Medication Instructions Recorded Confirmed Type aspirin 81 mg tablet,delayed 81 mg PO QAM 11/26/18 10/18/23 History release famotidine 20 mg tablet (Pepcid) 20 mg PO DAILY PRN Acid Reflux 11/26/18 10/18/23 History fluoxetine 20 mg capsule (Prozac) 20 mg PO DAILY #90 caps 11/07/22 10/18/23 Rx cyclobenzaprine 10 mg tablet 10 mg PO TID PRN muscle spasm #90 01/24/23 10/18/23 Rx tabs valacyclovir 500 mg tablet 500 mg PO BID #180 tabs 02/21/23 10/18/23 Rx atorvastatin 80 mg tablet 80 mg PO QPM #90 tabs 02/27/23 10/18/23 Rx metformin 500 mg tablet,extended 1,000 mg (2 x 500 mg) PO BID #360 07/20/23 10/18/23 Rx release 24hr (osmotic) tabs tadalafil (pulm. hypertension) 20 20 mg PO DAILY PRN ud 08/21/23 10/18/23 History mg tablet (pulmonary hypertension) ustekinumab 45 mg/0.5 mL 45 mg (0.5 mL) subcut ONCE #1 mL 09/05/23 10/18/23 Rx subcutaneous syringe (Stelara) amoxicillin 875 mg-potassium 1 tab PO BID #30 tabs 10/01/23 10/18/23 Rx clavulanate 125 mg tablet losartan 50 mg tablet 50 mg PO QAM 10/10/23 10/18/23 History metoprolol succinate 100 mg 100 mg PO QAM 10/10/23 10/18/23 History tablet,extended release 24 hr Patient History Medical History (Updated 10/19/23 @ 04:06 by David Zambrano MD) History of diverticulitis hx microperforation with abscess formation History of atrial fibrillation Follows with [facility]; 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 Anxiety Lumbar degenerative disc disease History of prostate cancer s/p prostatectomy Diverticulosis Lumbar disc herniation Hypertension Dyslipidemia Ulnar nerve palsy Psoriasis Neck pain Lumbosacral radiculopathy at L4 Lumbar radiculopathy Lumbar and sacral arthritis Degenerative cervical spinal stenosis HOSPICE CARE CONSULTANT demyelination Cervical radiculopathy Type 2 diabetes mellitus Sleep apnea CPAP Lumbar disc herniation L3-4 Psoriatic arthritis GERD (gastroesophageal reflux disease) Surgical History History of colonoscopy History of appendectomy H/O prostatectomy Family History Father Cancer pancreatic Diabetes Mother Hypertension PAD (peripheral artery disease) Atrial fibrillation Uncle Colorectal cancer Uncle Colorectal cancer Social History Smoking Status: Never smoker Second Hand Exposure: Yes (as a child); Do You Dip or Chew Tobacco: No; Hx Alcohol Use: Yes Alcohol type: beer and wine Hx Substance Use: No Preferred Language: Bangladeshi Communication Ability: Effective Metal Control Coordinator Required: No Beliefs That Will Affect Care: None marital status: Current Living Situation: Spouse current occupational status: employed 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 How many Children do You have: 1 Feels Safe at Home: Yes Assistive Devices: CPAP and Glasses Review of Systems Review of Systems: gen - no recent fevers or chills, no recent weight loss HENT - recent URI - nasal congestion, etc - now resolved CV - recent outpatient stress test - negative; no chest pain or other chest symptoms pulm - recent cough - now resolved; no dyspnea or DEL ANGEL GI - lower abdominal pain last 1-2 months from diverticulitis; no BRBPR; no nausea or emesis - no LUTS musculo - chronic joint pains from psoriatic arthritis (hands, etc); chronic low back pain endo - does not check his BSGs neuro - no motor weakness skin - psoriatic rashes not present Physical Exam Physical Exam: gen - NAD, resting comfortably in bed, pleasant eyes - PERRL, anicteric sclera HENT - MMM, small white lesion on tip of right tongue neck - no JVD, no lymph nodes, no thyroidmegaly heart - RRR, s1 s2, 1/6 early DAVID LLSB lungs - CTA b/l except faint, scattered, dry rales bases; good airation abd - mildly distended, BS+, NT, dressings intact, drain intact, no HSM ext - no edema, pulses 2+ b/l skin - no rashes neuro - strength 5/5 x 4 exts upper & lower exts; DTRs 2+ b/l upper/lower extremities musculo - chronic changes of psoriatic arthritis of hands psych - a/o x 3 Results & Data Vital Signs (Past 12 Hours) Vital Signs Temp Pulse Pulse Resp BP Pulse Ox O2 Del Method 10/18/23 17:18 36.8 C 64 18 113/74 95 Room Air 10/18/23 16:11 37.1 C 68 18 112/76 100 Room Air 10/18/23 15:31 36.7 C 68 18 144/81 H 98 Nasal Cannula 10/18/23 15:05 36.8 C 71 18 124/79 98 Room Air 10/18/23 14:39 37.0 C 71 16 124/79 97 Nasal Cannula 10/18/23 14:15 65 18 123/76 96 Nasal Cannula 10/18/23 14:00 69 20 125/73 96 Nasal Cannula 10/18/23 13:45 36.4 C L 67 21 137/86 95 Nasal Cannula 10/18/23 13:40 70 16 136/81 95 Nasal Cannula 10/18/23 13:30 68 21 138/84 97 Nasal Cannula 10/18/23 13:20 68 20 138/82 98 Nasal Cannula 10/18/23 13:10 69 21 140/85 94 Nasal Cannula 10/18/23 13:00 71 22 152/88 H 95 Oxymask 10/18/23 12:50 36.5 C 79 23 132/86 100 Oxymask 10/18/23 08:40 36.7 C 69 18 125/79 95 Room Air O2 Flow Rate 10/18/23 17:18 10/18/23 16:11 10/18/23 15:31 2 10/18/23 15:05 10/18/23 14:39 2 10/18/23 14:15 2 10/18/23 14:00 2 10/18/23 13:45 2 10/18/23 13:40 2 10/18/23 13:30 2 10/18/23 13:20 2 10/18/23 13:10 2 10/18/23 13:00 4 10/18/23 12:50 6 10/18/23 08:40 Laboratory Results Laboratory Results - last 24 hr 10/18/23 10/18/23 10/18/23 08:28 08:49 13:13 POC Glucose 136 H 159 H Blood Type A Positive Antibody Screen NEGATIVE 10/18/23 10/18/23 10/19/23 16:45 20:47 00:13 POC Glucose 156 H 134 H 152 H Blood Type Antibody Screen pre-op labs reviewed - all wnl except Na of 133 and Hb 13.1 Hba1c 7% Diagnostic Findings pre-op stress test negative for ischemia at 76% MPHR EF 60% mild MR only PG Care Time/CCT Total # of Minutes Spent Total Time Spent with Patient: Total time spent is greater than 50% in coordination of care (as documented) at patient's floor/unit and/or counseling patient: Coding Level of Care Code 34304 IN/OBS CONSULT LVL 2,35M Diagnoses Sigmoid diverticulitis K57.32 Type 2 diabetes mellitus E11.9 Hypertension I10 Dyslipidemia E78.5 Sleep apnea G47.30 GERD (gastroesophageal reflux disease) K21.9 Psoriatic arthritis L40.50 Anemia D64.9 History of atrial fibrillation Z86.79 Hyponatremia E87.1 DVT prophylaxis Z29.9
[2023-10-18] MEDS: CIPROFLOXACIN / D5W 400 MG/200 ML BAG IV SCH (22:16)
[2023-10-19] MEDS: INSULIN ASPART PER UNIT CHARGE SC SCH ×6 (00:17→21:39)
[2023-10-19] MEDS: metroNIDAZOLE 500 MG/100 ML BAG IV SCH ×3 (00:18→16:34)
[2023-10-19] MEDS: ACETAMINOPHEN 1,000 MG/100 ML VIAL IV SCH ×3 (06:02→22:35)
[2023-10-19] MEDS: LACTATED RINGER'S 1,000 ML IV SCH ×2 (06:02→15:46)
[2023-10-19 06:30] LABS: Basophils # (auto) 0.02 K/uL (0.00-0.20); Basophils % (auto) 0.3 %; Hematocrit (blood only) 34.6 % (42.0-52.0); Hemoglobin 11.6 g/dl (14.0-18.0); Immature Granulocytes # (auto) 0.02 K/uL (0.01-0.20); Immature Granulocytes % (auto) 0.3 %; Lymphocytes % (auto) 13.2 %; Mean Corpuscular Hemoglobin 31.5 pg (25.0-34.0); Mean Corpuscular Hgb Conc 33.5 g/dL (32.0-36.0); Mean Platelet Volume 10.9 fL (9.4-12.4); Monocytes # (auto) 0.58 K/uL (0.11-0.59); Monocytes % (auto) 8.5 %; Neutrophils # (auto) 5.28 K/uL (1.40-6.50); Neutrophils % (auto) 77.7 %; Platelet Count 238 K/uL (130-400); RDW Coefficient of Variation 14.5 % (11.5-14.5); RDW Standard Deviation 50.4 fL (36.4-46.3); Red Blood Count 3.68 M/uL (4.70-6.10)
[2023-10-19 06:52] LABS: BUN Creatinine Ratio 13.5 (10-20); Calcium 8.5 mg/dl (8.6-10.3); Creatinine Clr Calc Pharmacy 63.2 ml/min; Est GFR (African American) 93.1 ml/min; Est GFR (Non-African American) 80.3 ml/min; Magnesium 1.6 mg/dl (1.7-2.4); Potassium 3.9 mmol/L (3.5-5.1)
[2023-10-19] MEDS ORDERED: traMADol HCL 50 MG TABLET PO PRN (07:20)
--- NOTE | 2023-10-19 08:25 | Pharmacy Report ---
Pharmacy Glycemic Short Note 2 - Date of Service October 19, 2023 - Glycemic Short BSG Results (Last 24 hours): 10/18/23 10/18/23 10/18/23 08:49 13:13 16:45 Glucose POC Glucose 136 H 159 H 156 H 10/18/23 10/19/23 10/19/23 20:47 00:13 05:06 Glucose POC Glucose 134 H 152 H 112 H 10/19/23 10/19/23 05:37 07:53 Glucose 111 H POC Glucose 112 H OUTPATIENT ANTIDIABETIC REGIMEN: * Metformin 1g PO BID HbA1c 7.0% 10/12/23 ASSESSMENT: 10/19/23: * BSGs well-controlled yesterday postoperatively w/ 15 units of basal insulin and 2 units of correctional insulin (no carb coverage provided) * No ongoing steroids ordered, will utilize conservative basal scale at this time given fasting BSG of 112 mg/dL this morning * Diet advanced to clears/T2DM 10/18/23: * 68 yo Male s/p Laparoscopic Sigmoid Colectomy, type 2 DM on metformin at home, received 4mg IV Dexamethasone preop. * Will begin basal bolus insulin for glycemic control, will need to loosen parameters over next two days as steroid effects wear off. PLAN FOR INPATIENT GLYCEMIC CONTROL: * Hold outpatient oral diabetes medications * Basal insulin * Lantus 0-8 units SC HS (see EHR for details) * Bolus insulin * NovoLog per scale ACHS or Q6hrs while NPO * Goal Range: Low 110 mg/dL - High 140 mg/dL * Correction Factor: 30 mg/dL/unit * Nutritional / Prandial insulin per carb ratio of 1 unit per 10 grams CHO consumed
[2023-10-19] MEDS: MAGNESIUM SULFATE / D5W 1 GM/100 ML BAG IV SCH ×2 (08:43→10:52)
[2023-10-19] MEDS: METOPROLOL SUCC 50MG EXT REL TAB PO SCH (08:44)
[2023-10-19] MEDS: FLUoxetine HCL 20 MG CAP PO SCH (08:45)
[2023-10-19] MEDS: FAMOTIDINE 20 MG TAB PO SCH (08:51)
[2023-10-19] MEDS ORDERED: LOSARTAN POTASSIUM 50 MG TAB PO SCH (09:00)
[2023-10-19] MEDS: CeleBREX 200 MG CAP PO SCH ×2 (09:06→21:32)
[2023-10-19] MEDS: CIPROFLOXACIN / D5W 400 MG/200 ML BAG IV SCH ×2 (10:02→21:38)
--- NOTE | 2023-10-19 10:08 | Surgery Progress Note ---
Date of Service October 19, 2023 Assessment & Plan (1) History of bowel resection: Plan: POD 1 sigmoid bowel resection 10/18/[address] Carrillo Will continue IV fluids at this time Magnesium 1.6, repleted Will start clears , instructed to go slow Encouraged OOB to chair today Continue incentive spirometer Added tramadol and Celebrex for pain control after discussion with pt Continue IV antibiotics CBC WNL Collins catheter is to stay in for at least [address] Dr[address] Carrillo and Dr. Doyle Continue teds and SCDs in bed for DVT prophylaxis Will assess H/H tomorrow for chemical DVT prevention Pt seen and examined with Dr. Carrillo Admission and Anticipated Discharge Date Admission Date: October 18, 2023 Subjective Patient sitting up in bed Reports pain is tolerable Denies n/v , sob , cp Review of Systems Constitutional: no fever and no chills Eyes: + corrective lenses Ear, Nose, Mouth, Throat: no hearing loss Respiratory: no dyspnea Cardiovascular: no chest pain Gastrointestinal: + abdominal pain; no nausea and no vomit ing Musculoskeletal: no muscle weakness Neurologic: no confusion and no memory loss Physical Exam Physical Exam: alert oriented , pleasant Constitutional: cooperative and comfortable; no acute distress ENMT: external ear and nose normal, oropharynx normal Neck: trachea midline, no thyromegaly Respiratory: normal respiratory effort and able to speak in complete sente nces; no respiratory distress Cardiovascular: Rate/Rhythm: + abnormal rate Gastrointestinal (Abdomen): Inspection/Auscultation: + abdomen distended Percussion/Palpation: + abdomen tender and abdomen soft Musculoskeletal: no cyanosis or clubbing, extremities motor strength 5/5 Psychiatric: A+Ox3, euthymic affect Results & Data Vital Signs (Past 12 Hours) Vital Signs Temp Pulse Resp BP Pulse Ox O2 Del Method 10/19/23 08:21 97.3 F L 66 16 96/60 L 92 Room Air 10/19/23 05:07 98.4 F 66 16 115/71 95 Room Air 10/18/23 22:15 Room Air Results Complete Blood Count Results: RBC 3.48 M/uL (4.70-6.10) L 10/22/23 WBC 4.48 K/ul (4.8-10.8) L 10/22/23 Hgb 10.8 g/dl (14.0-18.0) L 10/22/23 Hct 32.6 % (42.0-52.0) L 10/22/23 Plt Count 199 K/uL (130-400) 10/22/23 Results BMP Results: Sodium 141 mmol/L (136-145) 10/22/23 Potassium 3.9 mmol/L (3.5-5.1) 10/22/23 Chloride 108 mmol/L (98-107) H 10/22/23 Carbon Dioxide 29 mmol/L (21-32) 10/22/23 Anion Gap 4 (3-11) 10/22/23 BUN 8 mg/dl (6-23) 10/22/23 Creatinine 0.95 mg/dl (0.6-1.4) 10/22/23 Glucose 104 mg/dl (70-99(Fasting)) H 10/22/23 PG Care Time/CCT Total # of Minutes Spent Total Time Spent with Patient: Total time spent is greater than 50% in coordination of care (as documented) at patient's floor/unit and/or counseling patient: Coding Level of Care Code 16249 Post Operative Follow-Up Diagnoses History of bowel resection Z90.49
[2023-10-19] MEDS ORDERED: LEVALBUTEROL 1.25 MG/3 ML NEB ONE ×2 (13:32→19:36)
[2023-10-19] MEDS ORDERED: LEVALBUTEROL 1.25 MG/3 ML NEB NEB STA (13:32)
--- NOTE | 2023-10-19 13:34 | Hospitalist Progress Note ---
Date of Service October 19, 2023 Assessment & Plan (1) Sigmoid diverticulitis: Plan: POD #1 s/p laparoscopic sigmoid resection with end-to-end anastomosis by Dr Neel Carrillo. This was done electively due to chronic, recurrent sigmoid diverticulitis. There was evidence of chronic inflammation of the sigmoid during the surgery. 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 He has received about 5-6 L of fluid since yesterday. I corresponded with surgery via [place] - they are ok with reducing his fluid rate. Fluids now 70cc/hr (was 125cc/hr previously). Defer pain meds, diet advancement, DVT proph, disposition to primary gen surg team. (2) Cough: Plan: Diffuse rales on exam today with rhonchi/wheeze. Initially I was concerned that perhaps he was volume overloaded given the copious IV fluids since admission. CXR with atelectasis only. Gave xopenex with improved lung exam and symptomatic relief of symptoms. Will schedule xopenex/atrovent nebs q6h. Add flutter. Cont incentive kenn. Consider mucinex. Low threshold to gently diurese. Repeat exam tomorrow. In addition to the above he had a recent URI in the last 1-2 weeks -- however, his lung exam was for the most part unremarkable yesterday. (3) Type 2 diabetes mellitus: Plan: Hold metformin. Pharmacy providing glycemic oversight. Cont basal-bolus insulin. Control excellent post-op thus far. Recent a1c noted (7%). (4) Hypertension: Plan: BPs controlled post-op. Cont to hold losartan but continue metoprolol. (5) Dyslipidemia: Plan: Lipitor currently on hold but can be resumed. Most recent lipid profile was on 10/12/23 and LDL was very low in the 40s. (6) Sleep apnea: Plan: Pt's spouse brought in his home unit; order placed to allow home unit usage. (7) GERD (gastroesophageal reflux disease): Plan: Continue H2 lucina. (8) Psoriatic arthritis: Plan: Follows with Dr Gordon Pereira, [facility] [place] [facility]. Ustekinumab has been on hold pre-op in preparation for this surgery. Defer resumption of his biological agent to his outpatient providers in the future. Arthritis is largely stable at this time. (9) Anemia: Plan: Mild, normocytic (MCV 90s). He vaguely mentioned feeling very restless last pm. Check Fe studies in am. H/H acceptable today. 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 No documented episodes since. Examines in NSR again today. (11) Hyponatremia: Plan: mild, Na level 133 on pre-op labs resolved on labs today (12) DVT prophylaxis: Plan: defer selection of chemical DVT proph to primary surgical team Plan /daughter updated at bedside Admission and Anticipated Discharge Date Admission Date: October 18, 2023 Subjective had a poor night last pm could not sleep did have pain in his abdomen hard to take deep breaths because of his abdominal pain feels congested in his chest; mild cough present as well; thus far not bringing any sputum up using his incentive spirometer regularly he was started on clears by the surgical team tolerated such without N/V +flatus overnight/today during my first visit the patient's lungs were wheezy with crackles xopenex neb ordered I came back for 2nd visit and he reported improvement in all pulmonary symptoms with the xopenex he has used an inhaler at home in the past and daughter were present during my visits today Review of Systems Review of Systems: cv - no chest pain, no orthopnea pulm - chest congestion, wheeze, cough; no dyspnea or DEL ANGEL noted GI - surgical pain but no N/V; +flatus - bailon remains in place, no issues psych - insomnia last pm Physical Exam Physical Exam: gen - sitting in chair, NAD - but looks very tired neck - no obvious JVD mouth - MMM heart - RRR, s1 s2, 1/6 DAVID LLSB lungs - diffuse crackles b/l about 1/[address] up back; some wheeze/rhonchi; airation poor especially in the bases; no increased work of breathing abd - mildly distended, incisional tenderness, BS+, no HSM skin - dressings intact over abdominal wall ext - no edema, pulses 2+ b/l psych - tired, but alert/oriented Results & Data Results & Data Vital Signs (Past 12 Hours) Vital Signs Temp Pulse Resp BP BP Pulse Ox O2 Del Method 10/19/23 10:01 130/75 02/02/24 08:21 36.3 C L 66 16 96/60 L 92 Room Air 10/19/23 05:07 36.9 C 66 16 115/71 95 Room Air Laboratory Results Laboratory Results - last 24 hr 10/19/23 10/19/23 10/19/23 05:37 07:53 11:35 WBC 6.80 RBC 3.68 L Hgb 11.6 L Hct 34.6 L MCV 94.0 MCH 31.5 MCHC 33.5 RDW Std Deviation 50.4 H RDW Coeff of Noah 14.5 Plt Count 238 MPV 10.9 Immature Gran % (Auto) 0.3 Neut % (Auto) 77.7 Lymph % (Auto) 13.2 Real % (Auto) 8.5 Eos % (Auto) 0.0 Baso % (Auto) 0.3 Neut # (Auto) 5.28 Lymph # (Auto) 0.90 L Real # (Auto) 0.58 Eos # (Auto) 0.00 Baso # (Auto) 0.02 Immature Gran # (Auto) 0.02 Sodium 138 Potassium 3.9 Chloride 101 Carbon Dioxide 30 Anion Gap 7 BUN 13 Creatinine 0.96 Est Cr Clr Drug Dosing 63.2 Est GFR ( Amer) 93.1 Est GFR (Non-Af Amer) 80.3 BUN/Creatinine Ratio 13.5 Glucose 111 H POC Glucose 112 H 169 H Calcium 8.5 L Magnesium 1.6 L 10/19/23 10/19/23 16:49 21:29 WBC RBC Hgb Hct MCV MCH MCHC RDW Std Deviation RDW Coeff of Noah Plt Count MPV Immature Gran % (Auto) Neut % (Auto) Lymph % (Auto) Real % (Auto) Eos % (Auto) Baso % (Auto) Neut # (Auto) Lymph # (Auto) Real # (Auto) Eos # (Auto) Baso # (Auto) Immature Gran # (Auto) Sodium Potassium Chloride Carbon Dioxide Anion Gap BUN Creatinine Est Cr Clr Drug Dosing Est GFR ( Amer) Est GFR (Non-Af Amer) BUN/Creatinine Ratio Glucose POC Glucose 90 112 H Calcium Magnesium Diagnostic Findings Chest X-Ray 10/19/23 13:32 SINGLE VIEW CHEST CLINICAL HISTORY: Cough and chest congestion. Recent surgery FINDINGS: An AP, portable, upright chest radiograph is compared to study dated 05/26/2011. The cardiomediastinal silhouette is top normal for projection. The pulmonary vasculature is noncongested. There is bibasilar atelectasis. No airspace consolidation or pleural effusion is identified. No pneumothorax is seen. The bony thorax is grossly intact. Subcutaneous gas is present within the upper abdominal wall bilaterally and there is intraperitoneal free air below the right hemidiaphragm. IMPRESSION: 1. Bibasilar atelectasis. No airspace consolidation or pleural effusion is identified. 2. Subcutaneous gas within the bilateral abdominal wall and intraperitoneal free air below the diaphragm is likely related to recent surgery. Correlate clinically. ACT 112: Negative or not required by law. Electronically signed by: Go Villalpando M.D. 10/19/2023 2:58 PM PG Care Time/CCT Total # of Minutes Spent Total Time Spent with Patient: Total time spent is greater than 50% in coordination of care (as documented) at patient's floor/unit and/or counseling patient: Coding Level of Care Code 98403 SUB INP/OBS CARE 2MIN Diagnoses Sigmoid diverticulitis K57.32 Cough R05 Type 2 diabetes mellitus E11.9 Hypertension I10 Dyslipidemia E78.5 Sleep apnea G47.30 GERD (gastroesophageal reflux disease) K21.9 Psoriatic arthritis L40.50 Anemia D64.9 History of atrial fibrillation Z86.79 Hyponatremia E87.1 DVT prophylaxis Z29.9
--- NOTE | 2023-10-19 15:00 | XRay Report ---
SINGLE VIEW CHEST CLINICAL HISTORY: Cough and chest congestion. Recent surgery FINDINGS: An AP, portable, upright chest radiograph is compared to study dated 05/26/2011. The cardiome diastinal silhouette is top normal for projection. The pulmonary vasculature is noncongested. There i s bibasilar atelectasis. No airspace consolidation or pleural effusion is identified. No pneumothorax is seen. The bony thorax is grossly intact. Subcutaneous gas is present within the upper abdominal w all bilaterally and there is intraperitoneal free air below the right hemidiaphragm. IMPRESSION: 1. Bibasilar atelectasis. No airspace consolidation or pleural effusion is identified. 2. Subcutaneous gas within the bilateral abdominal wall and intraperitoneal free air below the diaphr agm is likely related to recent surgery. Correlate clinically. ACT 112: Negative or not required by law. Electronically signed by: Go Villalpando M.D. 10/19/2023 2:58 PM
[2023-10-19] MEDS: traMADol HCL 50 MG TABLET PO PRN ×2 (15:15→21:32)
[2023-10-19] MEDS ORDERED: Nursing to Pharmacy Communication SCH (17:00)
[2023-10-19] MEDS ORDERED: XOPENEX/ATROVENT 1.25mg/0.5MG NEB COMBO NEB SCH (19:00)
[2023-10-19] MEDS: IPRATROPIUM BROMIDE NEB SOLN 0.02% 0.5MG/2.5ML VIAL INH SCH (19:40)
[2023-10-19] MEDS: LEVALBUTEROL 1.25MG/0.5ML NEB NEB SCH (19:42)
[2023-10-19] MEDS: MELATONIN 3 MG TAB PO SCH (21:32)
[2023-10-19] MEDS: LANTUS PER UNIT CHARGE SC SCH (21:39)
[2023-10-20] MEDS: LEVALBUTEROL 1.25MG/0.5ML NEB NEB SCH ×4 (00:09→19:51)
[2023-10-20] MEDS: IPRATROPIUM BROMIDE NEB SOLN 0.02% 0.5MG/2.5ML VIAL INH SCH ×4 (00:10→19:50)
[2023-10-20] MEDS: metroNIDAZOLE 500 MG/100 ML BAG IV SCH ×3 (01:06→16:58)
--- NOTE | 2023-10-20 06:00 | Surgery Progress Note ---
Date of Service October 20, 2023 Assessment & Plan (1) Diverticulitis: Plan: Patient is status post laparoscopic assisted sigmoidectomy on 10/18/2023 (postop day #2) Surgery was performed due to recurrent/persistent diverticulitis Surgical pathology is pending Patient is currently on clear liquids but does not have much in the way of an appetite so we will maintain present diet for now Continue antibiotics in form of Cipro and Flagyl Continue analgesics as needed Continue antiemetics as needed Encourage ambulation Encourage use of incentive spirometer Check a.m. labs are available Due to adherence of bowel to the bladder and extensive dissection Collins catheter is to be in place for 5 to 7 days per urology If H&H is stable this morning consideration be given to adding DVT prophylaxis Admission and Anticipated Discharge Date Admission Date: October 18, 2023 Supervising Physician Co-Signing Physician Notes Patient seen and examined, labs and imaging reviewed, agree with above. POD #2 laparoscopic assisted sigmoidectomy. Tolerating clear liquids and does not have much appetite. Is passing a lot of flatus. Feels better than yesterday. On exam afebrile stable vitals, incisions with dressings in place, no evidence of infection. [place] in left lower quadrant. SUZIE drain serosanguineous. Abdomen appropriately tender to palpation. WBC normal, H&H stable. If he is feeling hungrier this afternoon he may advance to full liquids. They may change the outer dressings and leave the Silverlon dressings in place. Continue SUZIE. Continue Collins for 5 to 7 days postop per urology. Ambulation. Will add Lovenox. Subjective Patient is resting comfortably in bed. He notes that his pain is well- controlled at the present time. He denies any shortness of breath or cough. He denies any fevers, shakes, or chills. He notes that he has not had a bowel movement since surgery but he is passing a considerable amount of flatus, although he reports he does not have much in the way of an appetite. He reports that he has been able to ambulate in the hallway since his surgery. He does not voice any other concerns at this time. Physical Exam Constitutional: WD/WN, vitals as above Cardiovascular: Rate/Rhythm: regular rate and regular rhythm Gastrointestinal (Abdomen): Abdomen is soft and nondistended. It is nonrigid. Patient has appropriate tenderness near surgical incisions. Incisions are overall clean, dry, and intact. Patient's accessory incision does have a Christina drain in the subcutaneous tissue. A SUZIE drain is in place draining serosanguineous fluidit is drained 80 cc over the past 24 hours. Results & Data Vital Signs (Past 12 Hours) Vital Signs Pulse Resp Pulse Ox O2 Del Method 10/20/23 00:10 63 16 95 Room Air 10/19/23 21:30 Room Air 10/19/23 19:43 107 H 15 98 Room Air PG Care Time/CCT Total # of Minutes Spent Total Time Spent with Patient: Total time spent is greater than 50% in coordination of care (as documented) at patient's floor/unit and/or counseling patient: Coding Level of Care Code 21794 Post Operative Follow-Up Diagnoses Diverticulitis K57.92
[2023-10-20 06:30] LABS: Basophils # (auto) 0.01 K/uL (0.00-0.20); Basophils % (auto) 0.2 %; Eosinophils # (auto) 0.01 K/uL (0.00-0.50); Eosinophils % (auto) 0.2 %; Hematocrit (blood only) 32.1 % (42.0-52.0); Hemoglobin 10.5 g/dl (14.0-18.0); Immature Granulocytes # (auto) 0.01 K/uL (0.01-0.20); Immature Granulocytes % (auto) 0.2 %; Lymphocytes # (auto) 1.05 K/uL (1.20-3.40); Lymphocytes % (auto) 19.2 %; Mean Corpuscular Hemoglobin 30.9 pg (25.0-34.0); Mean Corpuscular Hgb Conc 32.7 g/dL (32.0-36.0); Mean Corpuscular Volume 94.4 fL (80.0-100.0); Mean Platelet Volume 10.7 fL (9.4-12.4); Monocytes # (auto) 0.52 K/uL (0.11-0.59); Monocytes % (auto) 9.5 %; Neutrophils # (auto) 3.87 K/uL (1.40-6.50); Neutrophils % (auto) 70.7 %; Platelet Count 184 K/uL (130-400); RDW Coefficient of Variation 14.5 % (11.5-14.5); RDW Standard Deviation 50.2 fL (36.4-46.3); White Blood Count 5.47 K/ul (4.8-10.8)
[2023-10-20] MEDS: traMADol HCL 50 MG TABLET PO PRN (06:31)
[2023-10-20] MEDS: LACTATED RINGER'S 1,000 ML IV SCH ×2 (06:32→20:52)
[2023-10-20] MEDS: ACETAMINOPHEN 1,000 MG/100 ML VIAL IV SCH ×3 (06:34→22:56)
[2023-10-20 06:46] LABS: BUN Creatinine Ratio 9.1 (10-20); Calcium 7.7 mg/dl (8.6-10.3); Creatinine Clr Calc Pharmacy 68.9 ml/min; Est GFR (African American) 101.6 ml/min; Est GFR (Non-African American) 87.6 ml/min; Magnesium 1.8 mg/dl (1.7-2.4); Potassium 3.5 mmol/L (3.5-5.1)
[2023-10-20 07:05] LABS: Ferritin 183.8 ng/ml (8-388)
[2023-10-20] MEDS ORDERED: LEVALBUTEROL 1.25 MG/3 ML NEB ONE ×3 (07:11→19:39)
[2023-10-20] MEDS: METOPROLOL SUCC 50MG EXT REL TAB PO SCH (08:16)
[2023-10-20] MEDS: CeleBREX 200 MG CAP PO SCH ×2 (08:17→20:44)
[2023-10-20] MEDS: FLUoxetine HCL 20 MG CAP PO SCH (08:17)
[2023-10-20] MEDS: FAMOTIDINE 20 MG TAB PO SCH (08:17)
[2023-10-20] MEDS: INSULIN ASPART PER UNIT CHARGE SC SCH ×4 (08:24→21:39)
[2023-10-20] MEDS: ENOXAPARIN INJ 40 MG/0.4 ML SYR SQ SCH (09:44)
[2023-10-20] MEDS: CIPROFLOXACIN / D5W 400 MG/200 ML BAG IV SCH ×2 (09:45→20:53)
--- NOTE | 2023-10-20 18:48 | Hospitalist Progress Note ---
Date of Service October 20, 2023 Assessment & Plan (1) Sigmoid diverticulitis: Plan: POD #2 s/p laparoscopic sigmoid resection with end-to-end anastomosis by Dr Neel Carrillo. This was done electively due to chronic, recurrent sigmoid diverticulitis. There was evidence of chronic inflammation of the sigmoid during the surgery. 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 Doing well from surgical standpoint. Diet was advanced today from clears to full liquids. Remains on IV fluids at 70cc/hr. Hopefully can d/c fluids tomorrow. (2) Cough: Plan: Continues to have significant rales in both bases. Previous cxr with atelectasis only. He has no pulmonary symptoms other than cough. Xopenex nebs are helpful for the cough. He does not examine in CHF. Cont incentive kenn + flutter valve along with walking. If rales worsen or persist - or if he develops dyspnea - repeat cxr. (3) Type 2 diabetes mellitus: Plan: Hold metformin. Pharmacy providing glycemic oversight. Cont basal-bolus insulin. Control excellent. Recent a1c noted (7%). (4) Hypertension: Plan: BPs controlled. Cont to hold losartan but continue metoprolol. (5) Dyslipidemia: Plan: Cont Lipitor. Most recent lipid profile was on 10/12/23 and LDL was very low in the 40s. (6) Sleep apnea: Plan: Cont home CPAP unit. (7) GERD (gastroesophageal reflux disease): Plan: Continue H2 lucina. (8) Psoriatic arthritis: Plan: Follows with Dr Gordon Pereira, [facility] Rheum. Ustekinumab has been on hold pre-op in preparation for this surgery. Defer resumption of his biological agent to his outpatient providers in the future. Arthritis is largely stable at this time. (9) Anemia: Plan: Mild, normocytic (MCV 90s). Fe studies - ferritin is normal, but transferrin sat is low at 9%. He may have Fe def. recommended he have his Fe panel rechecked post-discharge. in meantime, once bowel function is better, consider PO ferrous sulfate. 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 No documented episodes since. Continue to examine in NSR. (11) Hyponatremia: Plan: mild, Na level 133 on pre-op labs resolved (12) DVT prophylaxis: Plan: lovenox 40mg daily as selected by gen surg Plan daughter updated at bedside progressing nicely Admission and Anticipated Discharge Date Admission Date: October 18, [address] Prince had a better night slept better passing plenty of flatus no stool yet mild incisional pain no N/V tolerating clears no chest pain, orthopnea, dyspnea or DEL ANGEL walked the hallways today without difficulty no other new issues Review of Systems Review of Systems: gen - no fevers or chills pulm - able to take deeper breaths, still with cough but mild; no dyspnea or DEL ANGEL - bailon in place, clear yellow urine Physical Exam Physical Exam: gen - laying in bed comfortably, NAD, looks better today neck - no obvious JVD mouth - MMM heart - RRR, s1 s2, 1/6 DAVID LLSB lungs - diffuse crackles b/l about 1/[address] up back - no change; no wheezes/rhonchi; airation improved abd - distension improved; incisional tenderness only (mild); BS+, no HSM ext - no edema, pulses 2+ b/l psych - but alert/oriented x 3 Results & Data Results & Data Vital Signs (Past 12 Hours) Vital Signs Temp Pulse Resp BP Pulse Ox O2 Del Method 10/20/23 15:41 36.5 C 10/20/23 15:02 77 16 108/71 95 Room Air 10/20/23 12:37 62 18 97 Room Air 10/20/23 08:15 92 H 16 113/67 94 Room Air 10/20/23 08:00 Room Air 10/20/23 07:21 68 20 96 Room Air Laboratory Results Laboratory Results - last 24 hr 10/19/23 10/20/23 10/20/23 21:29 05:38 07:45 WBC 5.47 RBC 3.40 L Hgb 10.5 L Hct 32.1 L MCV 94.4 MCH 30.9 MCHC 32.7 RDW Std Deviation 50.2 H RDW Coeff of Noah 14.5 Plt Count 184 MPV 10.7 Immature Gran % (Auto) 0.2 Neut % (Auto) 70.7 Lymph % (Auto) 19.2 [place] % (Auto) 9.5 Eos % (Auto) 0.2 Baso % (Auto) 0.2 Neut # (Auto) 3.87 Lymph # (Auto) 1.05 L [place] # (Auto) 0.52 Eos # (Auto) 0.01 Baso # (Auto) 0.01 Immature Gran # (Auto) 0.01 Sodium 141 Potassium 3.5 Chloride 106 Carbon Dioxide 27 Anion Gap 8 BUN 8 Creatinine 0.88 Est Cr Clr Drug Dosing 68.9 Est GFR ( Amer) 101.6 Est GFR (Non-Af Amer) 87.6 BUN/Creatinine Ratio 9.1 L Glucose 111 H POC Glucose 112 H 126 H Calcium 7.7 L Magnesium 1.8 Iron 19 L TIBC 219 L Unsaturated IBC 200 Transferrin % Sat 9 L Ferritin 183.8 10/20/23 10/20/23 11:46 16:57 WBC RBC Hgb Hct MCV MCH MCHC RDW Std Deviation RDW Coeff of Noah Plt Count MPV Immature Gran % (Auto) Neut % (Auto) Lymph % (Auto) [place] % (Auto) Eos % (Auto) Baso % (Auto) Neut # (Auto) Lymph # (Auto) [place] # (Auto) Eos # (Auto) Baso # (Auto) Immature Gran # (Auto) Sodium Potassium Chloride Carbon Dioxide Anion Gap BUN Creatinine Est Cr Clr Drug Dosing Est GFR ( Amer) Est GFR (Non-Af Amer) BUN/Creatinine Ratio Glucose POC Glucose 166 H 109 H Calcium Magnesium Iron TIBC Unsaturated IBC Transferrin % Sat Ferritin PG Care Time/CCT Total # of Minutes Spent Total Time Spent with Patient: Total time spent is greater than 50% in coordination of care (as documented) at patient's floor/unit and/or counseling patient: Coding Level of Care Code 92814 SUB INP/OBS CARE 125MIN Diagnoses Sigmoid diverticulitis K57.32 Cough R05 Type 2 diabetes mellitus E11.9 Hypertension I10 Dyslipidemia E78.5 Sleep apnea G47.30 GERD (gastroesophageal reflux disease) K21.9 Psoriatic arthritis L40.50 Anemia D64.9 History of atrial fibrillation Z86.79 Hyponatremia E87.1 DVT prophylaxis Z29.9
[2023-10-20] MEDS: ATORVASTATIN 40 MG TAB PO SCH (20:44)
[2023-10-20] MEDS: MELATONIN 3 MG TAB PO SCH (20:44)
[2023-10-20] MEDS: LANTUS PER UNIT CHARGE SC SCH (21:39)
[2023-10-21] MEDS: IPRATROPIUM BROMIDE NEB SOLN 0.02% 0.5MG/2.5ML VIAL INH SCH ×4 (00:18→19:13)
[2023-10-21] MEDS: LEVALBUTEROL 1.25MG/0.5ML NEB NEB SCH ×4 (00:18→19:13)
[2023-10-21] MEDS: metroNIDAZOLE 500 MG/100 ML BAG IV SCH ×3 (01:03→17:44)
[2023-10-21 06:04] LABS: Basophils # (auto) 0.02 K/uL (0.00-0.20); Basophils % (auto) 0.5 %; Eosinophils # (auto) 0.08 K/uL (0.00-0.50); Eosinophils % (auto) 1.8 %; Hematocrit (blood only) 31.2 % (42.0-52.0); Hemoglobin 10.4 g/dl (14.0-18.0); Immature Granulocytes # (auto) 0.01 K/uL (0.01-0.20); Immature Granulocytes % (auto) 0.2 %; Lymphocytes # (auto) 1.03 K/uL (1.20-3.40); Lymphocytes % (auto) 23.3 %; Mean Corpuscular Hemoglobin 31.4 pg (25.0-34.0); Mean Corpuscular Hgb Conc 33.3 g/dL (32.0-36.0); Mean Corpuscular Volume 94.3 fL (80.0-100.0); Mean Platelet Volume 10.6 fL (9.4-12.4); Monocytes # (auto) 0.37 K/uL (0.11-0.59); Monocytes % (auto) 8.4 %; Neutrophils # (auto) 2.91 K/uL (1.40-6.50); Neutrophils % (auto) 65.8 %; Platelet Count 196 K/uL (130-400); RDW Coefficient of Variation 14.1 % (11.5-14.5); RDW Standard Deviation 48.6 fL (36.4-46.3); Red Blood Count 3.31 M/uL (4.70-6.10); White Blood Count 4.42 K/ul (4.8-10.8)
[2023-10-21 06:14] LABS: BUN Creatinine Ratio 7.8 (10-20); Calcium 7.7 mg/dl (8.6-10.3); Creatinine Clr Calc Pharmacy 67.4 ml/min; Est GFR (African American) 100.6 ml/min; Est GFR (Non-African American) 86.8 ml/min; Potassium 3.7 mmol/L (3.5-5.1)
--- NOTE | 2023-10-21 06:19 | Surgery Progress Note ---
Date of Service October 21, 2023 Assessment & Plan (1) Diverticulitis: Plan: Patient is status post laparoscopic assisted sigmoidectomy on 10/18/2023 (postop day #3) Surgery was performed due to recurrent/persistent diverticulitis Surgical pathology remains pending Labs this morning did not demonstrate leukocytosis. H&H is stable. Electrolytes are acceptable and renal function is good. Diet advanced last evening to full liquids. As patient reports not much of an appetite this morning will continue full liquids for the present time Continue antibiotics in form of Cipro and Flagyl Analgesics as needed Antiemetics as needed Continue ambulation Continue use of incentive spirometer As noted, there is adherence of bowel to bladder and extensive dissection was required at time of surgery. Therefore, Collins catheter to remain in place for approximately 1 week per urology. Lovenox is in place for DVT prevention Admission and Anticipated Discharge Date Admission Date: October 18, 2023 Supervising Physician Co-Signing Physician Notes Patient seen and examined, labs and imaging reviewed, agree with above. POD #3 laparoscopic assisted sigmoidectomy with Dr. Carrillo. Tolerated full liquids yesterday evening. He continues to pass flatus and had a bowel movement. Did require some Zofran overnight for some nausea. Feels better than yesterday. On exam afebrile stable vitals, incisions with dressings in place, no evidence of infection. [place] in left lower quadrant. SUZIE drain serosanguineous. Abdomen appropriately tender to palpation. WBC normal, H&H stable. We will advance him to low fiber. They may change the outer dressings and leave the Silverlon dressings in place. Continue SUZIE. Continue Collins for 5 to 7 days postop per urology. Ambulation. IV KVO Subjective Patient is currently resting comfortably in bed. He denies any fevers, shakes, or chills. He notes that his breathing feels comfortable. He did report he had a slight cough yesterday which has improved. He notes that he ambulated in the hallway numerous times yesterday. He does report having a bowel movement last evening at about 6:30 PM. He still reports he does not have much in the way of an appetite however. He says his pain is well-controlled at the present time and he denies any nausea or vomiting. Physical Exam Constitutional: WD/WN, vitals as above Respiratory: Breath sounds noted to have slight decrease at the bases. I did not appreciate any wheezing on exam this morning. He is not using accessory muscles to aid in respiration Cardiovascular: Rate/Rhythm: regular rate and regular rhythm Gastrointestinal (Abdomen): Abdomen is soft with minimal distention. Bowel sounds are present. Appropriate tenderness noted near surgical incisions. Incisions do appear to be clean, dry, and intact. There is a [place] drain in the accessory incision. The SUZIE drain is in place draining serosanguineous fluid and is drained approximately 65 cc over the past 24 hours. Musculoskeletal: No calf tenderness Results & Data Vital Signs (Past 12 Hours) Vital Signs Temp Pulse Resp BP Pulse Ox O2 Del Method 10/20/23 20:55 36.4 C L 67 16 151/83 H 94 Room Air 10/20/23 20:44 Room Air 10/20/23 19:51 70 18 94 Room Air PG Care Time/CCT Total # of Minutes Spent Total Time Spent with Patient: Total time spent is greater than 50% in coordination of care (as documented) at patient's floor/unit and/or counseling patient: Coding Level of Care Code 69398 Post Operative Follow-Up Diagnoses Diverticulitis K57.92
[2023-10-21] MEDS: ACETAMINOPHEN 1,000 MG/100 ML VIAL IV SCH (06:28)
[2023-10-21] MEDS ORDERED: ONDANSETRON INJ 2 MG/ML 2 ML VIAL IV STA (06:33)
[2023-10-21] MEDS ORDERED: LEVALBUTEROL 1.25 MG/3 ML NEB ONE ×3 (07:05→18:57)
[2023-10-21] MEDS: ENOXAPARIN INJ 40 MG/0.4 ML SYR SQ SCH (08:26)
[2023-10-21] MEDS: CeleBREX 200 MG CAP PO SCH ×2 (08:26→20:05)
[2023-10-21] MEDS: FAMOTIDINE 20 MG TAB PO SCH (08:27)
[2023-10-21] MEDS: FLUoxetine HCL 20 MG CAP PO SCH (08:27)
[2023-10-21] MEDS: METOPROLOL SUCC 50MG EXT REL TAB PO SCH (08:27)
[2023-10-21] MEDS: INSULIN ASPART PER UNIT CHARGE SC SCH ×4 (08:30→20:02)
[2023-10-21] MEDS: CIPROFLOXACIN / D5W 400 MG/200 ML BAG IV SCH ×2 (11:38→22:18)
--- NOTE | 2023-10-21 16:53 | Hospitalist Progress Note ---
Date of Service October 21, 2023 Assessment & Plan (1) Sigmoid diverticulitis: Plan: POD #3 s/p laparoscopic sigmoid resection with end-to-end anastomosis by Dr Neel Carrillo. This was done electively due to chronic, recurrent sigmoid diverticulitis. There was evidence of chronic inflammation of the sigmoid during the surgery. 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 Doing well from surgical standpoint. Diet advanced to low fiber diet today. IV fluids stopped. Moving bowels. Ambulating. (2) Cough: Plan: Continues with basilar rales on exam but they are improved. Previous cxr with atelectasis only. He has no pulmonary symptoms other than cough. Xopenex nebs are helpful for the cough. He does not examine in CHF. Will check a weight today and if weight is significantly elevated above baseline weight perhaps he has a component of pulm edema contributing to his abnl lung exam. Cont incentive kenn + flutter valve along with walking. Consider repeat cxr if breathing worsens or lung exam fails to normalize. (3) Type 2 diabetes mellitus: Plan: Hold metformin. Pharmacy providing glycemic oversight. Cont basal-bolus insulin. Control excellent. Recent a1c noted (7%). (4) Hypertension: Plan: BPs controlled. continue metoprolol. likely resume losartan tomorrow. (5) Dyslipidemia: Plan: Cont Lipitor. Most recent lipid profile was on 10/12/23 and LDL was very low in the 40s. (6) Sleep apnea: Plan: Cont home CPAP unit. (7) GERD (gastroesophageal reflux disease): Plan: Continue H2 lucina. (8) Psoriatic arthritis: Plan: Follows with Dr Gordon Pereira, [facility] Rheum. Ustekinumab has been on hold pre-op in preparation for this surgery. Defer resumption of his biological agent to his outpatient providers in the future. Arthritis is largely stable at this time. Cont celebrex BID. (9) Anemia: Plan: Mild, normocytic (MCV 90s). Fe studies - ferritin is normal, but transferrin sat is low at 9%. He may have Fe def. recommended he have his Fe panel rechecked post-discharge. in meantime, once bowel function is better, consider PO ferrous sulfate. 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 No documented episodes since. Continue to examine in NSR. (11) Hyponatremia: Plan: resolved (12) DVT prophylaxis: Plan: lovenox 40mg daily Plan daughter and his updated at bedside progressing stable from medical standpoint Admission and Anticipated Discharge Date Admission Date: October 18, 2023 Subjective gen surg advanced his diet to low fiber he has had multiple BMs and passing plenty of flatus this am he had dyspepsia and stomach upset - relieved with zofran denies GERD symptoms surgical incision pain has improved no vomiting no dyspnea no DEL ANGEL walking the hallways w/o difficulty Review of Systems Review of Systems: gen - feels better than this am cv - no chest pain or orthopnea pul - mild cough (occasional), can take deep breaths, no wheezing - bailon remains in place, draining clear yellow urine Physical Exam Physical Exam: gen - laying in bed comfortably, NAD, looks good neck - no JVD mouth - MMM heart - RRR, s1 s2, 1/6 DAVID LLSB lungs - crackles b/l bases - modestly improved; no wheeze; no rhonchi; no increased work of breathing; overall lung sounds are improved abd - distension resolved; nontender; soft; BS+, no HSM ext - no edema, pulses 2+ b/l psych - alert/oriented x 3 Results & Data Results & Data Vital Signs (Past 12 Hours) Vital Signs Temp Pulse Resp BP BP Pulse Ox O2 Del Method 10/21/23 15:09 36.7 C 66 16 118/72 97 Room Air 10/21/23 13:54 68 18 98 Room Air 10/21/23 08:30 72 127/74 10/21/23 07:38 36.3 C L 66 16 161/79 H 96 Room Air 10/21/23 07:09 60 16 98 Room Air Laboratory Results Laboratory Results - last 24 hr 10/20/23 10/20/23 10/21/23 16:57 20:52 05:13 WBC 4.42 L RBC 3.31 L Hgb 10.4 L Hct 31.2 L MCV 94.3 MCH 31.4 MCHC 33.3 RDW Std Deviation 48.6 H RDW Coeff of Noah 14.1 Plt Count 196 MPV 10.6 Immature Gran % (Auto) 0.2 Neut % (Auto) 65.8 Lymph % (Auto) 23.3 [place] % (Auto) 8.4 Eos % (Auto) 1.8 Baso % (Auto) 0.5 Neut # (Auto) 2.91 Lymph # (Auto) 1.03 L [place] # (Auto) 0.37 Eos # (Auto) 0.08 Baso # (Auto) 0.02 Immature Gran # (Auto) 0.01 Sodium 140 Potassium 3.7 Chloride 107 Carbon Dioxide 28 Anion Gap 5 BUN 7 Creatinine 0.90 Est Cr Clr Drug Dosing 67.4 Est GFR ( Amer) 100.6 Est GFR (Non-Af Amer) 86.8 BUN/Creatinine Ratio 7.8 L Glucose 96 POC Glucose 109 H 121 H Calcium 7.7 L 10/21/23 10/21/23 10/21/23 07:41 12:16 16:41 WBC RBC Hgb Hct MCV MCH MCHC RDW Std Deviation RDW Coeff of Noah Plt Count MPV Immature Gran % (Auto) Neut % (Auto) Lymph % (Auto) [place] % (Auto) Eos % (Auto) Baso % (Auto) Neut # (Auto) Lymph # (Auto) [place] # (Auto) Eos # (Auto) Baso # (Auto) Immature Gran # (Auto) Sodium Potassium Chloride Carbon Dioxide Anion Gap BUN Creatinine Est Cr Clr Drug Dosing Est GFR ( Amer) Est GFR (Non-Af Amer) BUN/Creatinine Ratio Glucose POC Glucose 105 H 106 H 89 Calcium PG Care Time/CCT Total # of Minutes Spent Total Time Spent with Patient: Total time spent is greater than 50% in coordination of care (as documented) at patient's floor/unit and/or counseling patient: Coding Level of Care Code 24527 SUB INP/OBS CARE 1/25MIN Diagnoses Sigmoid diverticulitis K57.32 Cough R05 Type 2 diabetes mellitus E11.9 Hypertension I10 Dyslipidemia E78.5 Sleep apnea G47.30 GERD (gastroesophageal reflux disease) K21.9 Psoriatic arthritis L40.50 Anemia D64.9 History of atrial fibrillation Z86.79 Hyponatremia E87.1 DVT prophylaxis Z29.9
[2023-10-21] MEDS: ATORVASTATIN 40 MG TAB PO SCH (20:05)
[2023-10-21] MEDS: MELATONIN 3 MG TAB PO SCH (20:05)
[2023-10-22] MEDS: IPRATROPIUM BROMIDE NEB SOLN 0.02% 0.5MG/2.5ML VIAL INH SCH ×2 (00:01→07:22)
[2023-10-22] MEDS: LEVALBUTEROL 1.25MG/0.5ML NEB NEB SCH ×2 (00:02→07:22)
[2023-10-22] MEDS: metroNIDAZOLE 500 MG/100 ML BAG IV SCH ×2 (00:25→08:30)
[2023-10-22] MEDS ORDERED: ONDANSETRON INJ 2 MG/ML 2 ML VIAL IV STA (00:46)
[2023-10-22 06:30] LABS: Hematocrit (blood only) 32.6 % (42.0-52.0); Hemoglobin 10.8 g/dl (14.0-18.0); Mean Corpuscular Hgb Conc 33.1 g/dL (32.0-36.0); Mean Corpuscular Volume 93.7 fL (80.0-100.0); Mean Platelet Volume 10.2 fL (9.4-12.4); Platelet Count 199 K/uL (130-400); RDW Coefficient of Variation 14.2 % (11.5-14.5); RDW Standard Deviation 48.4 fL (36.4-46.3); Red Blood Count 3.48 M/uL (4.70-6.10); White Blood Count 4.48 K/ul (4.8-10.8)
[2023-10-22 06:45] LABS: BUN Creatinine Ratio 8.4 (10-20); Creatinine Clr Calc Pharmacy 63.8 ml/min; Est GFR (African American) 94.3 ml/min; Est GFR (Non-African American) 81.3 ml/min; Potassium 3.9 mmol/L (3.5-5.1)
[2023-10-22 06:51] LABS: Basophils # (auto) 0.01 K/uL (0.00-0.20); Basophils % (auto) 0.2 %; Eosinophils # (auto) 0.24 K/uL (0.00-0.50); Eosinophils % (auto) 5.4 %; Immature Granulocytes # (auto) 0.01 K/uL (0.01-0.20); Immature Granulocytes % (auto) 0.2 %; Lymphocytes # (auto) 1.12 K/uL (1.20-3.40); Monocytes % (auto) 11.2 %; RBC Morphology Unremarkable
[2023-10-22] MEDS ORDERED: LEVALBUTEROL 1.25 MG/3 ML NEB ONE (07:01)
[2023-10-22] MEDS: ENOXAPARIN INJ 40 MG/0.4 ML SYR SQ SCH (08:29)
[2023-10-22] MEDS: METOPROLOL SUCC 50MG EXT REL TAB PO SCH (08:30)
[2023-10-22] MEDS: FAMOTIDINE 20 MG TAB PO SCH (08:30)
[2023-10-22] MEDS: FLUoxetine HCL 20 MG CAP PO SCH (08:30)
[2023-10-22] MEDS: INSULIN ASPART PER UNIT CHARGE SC SCH (08:30)
[2023-10-22] MEDS: CeleBREX 200 MG CAP PO SCH (08:30)
[2023-10-22] MEDS: CIPROFLOXACIN / D5W 400 MG/200 ML BAG IV SCH (08:31)
--- NOTE | 2023-10-22 08:38 | Pharmacy Report ---
Pharmacy Glycemic Short Note 2 - Date of Service October 22, 2023 - Glycemic Short BSG Results (Last 24 hours): 10/21/23 10/21/23 10/21/23 12:16 16:41 20:01 Glucose POC Glucose 106 H 89 98 10/22/23 10/22/23 05:52 07:15 Glucose 104 H POC Glucose 104 H OUTPATIENT ANTIDIABETIC REGIMEN: * Metformin 1g PO BID * HbA1c 7.0% (10/12/23) ASSESSMENT: 10/22: * Dale has required no basal insulin since admission. Over this weekend, he requires 7 units of bolus insulin on Sunday and 11 units yesterday. BSGs ranged 89-166 mg/dL. * PO intake improving. Will monitor BSGs with improved diet for 24 hour more hours. Likely can resume home metformin tomorrow. No change to insulin regimen today. 10/19: * BSGs well-controlled yesterday postoperatively w/ 15 units of basal insulin and 2 units of correctional insulin (no carb coverage provided) * No ongoing steroids ordered, will utilize conservative basal scale at this time given fasting BSG of 112 mg/dL this morning * Diet advanced to clears/T2DM 10/18: * 68 yo Male s/p Laparoscopic Sigmoid Colectomy, type 2 DM on metformin at home, received 4mg IV Dexamethasone preop. * Will begin basal bolus insulin for glycemic control, will need to loosen parameters over next two days as steroid effects wear off. PLAN FOR INPATIENT GLYCEMIC CONTROL: * Hold outpatient oral diabetes medications * Basal insulin * None * Bolus insulin * NovoLog per scale ACHS or Q6hrs while NPO * Goal Range: Low 110 mg/dL - High 140 mg/dL * Correction Factor: 30 mg/dL/unit * Nutritional / Prandial insulin per carb ratio of 1 unit per 10 grams CHO consumed
--- NOTE | 2023-10-22 08:39 | Surgery Progress Note ---
Date of Service October 22, 2023 Assessment & Plan (1) H/O colectomy: Plan: pod 4 doing well. ok for d/c d/w Dr. Doyle...will remove bailon prior to d/c d/c SUZIE discussed diet/wound care. f/u with me in 7-10 days. Admission and Anticipated Discharge Date Admission Date: October 18, 2023 Subjective pt seen. doing well. elzbieta diet though not much appetitie. +multiple loose bm's over weekend. pain minimal. Physical Exam Physical Exam: alert. nad abd: soft. expected tenderness. SUZIE serous. Results & Data Vital Signs (Past 12 Hours) Vital Signs Temp Pulse Resp BP Pulse Ox O2 Del Method 10/22/23 07:23 62 18 96 Room Air 10/22/23 07:22 36.5 C 56 L 16 167/89 H 98 Room Air 10/21/23 20:46 Room Air PG Care Time/CCT Total # of Minutes Spent Total Time Spent with Patient: Total time spent is greater than 50% in coordination of care (as documented) at patient's floor/unit and/or counseling patient: Coding Level of Care Code 47256 Post Operative Follow-Up Diagnoses H/O colectomy Z90.49
[2023-10-22] MEDS ORDERED: LOSARTAN POTASSIUM 50 MG TAB PO SCH (09:15)
--- NOTE | 2023-10-22 11:48 | Hospitalist Progress Note ---
Date of Service October 22, 2023 Assessment & Plan (1) Sigmoid diverticulitis: Plan: POD #4 s/p laparoscopic sigmoid resection with end-to-end anastomosis by Dr Neel Carrillo. Doing well from surgical standpoint. Sigmoid resection done electively due to chronic, recurrent sigmoid diverticulitis. There was evidence of chronic inflammation of the sigmoid during the surgery. 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 Tolerating low fiber diet, Moving bowels, Ambulating, pain controlled. Will give script for zofran for prn use at home. (2) Cough: Plan: 2nd to severe atelectasis. Resolved. Cont incentive kenn + flutter valve along with walking. O2 sats wnl. Lung exam near-normal today. (3) Type 2 diabetes mellitus: Plan: Resume metformin at discharge. Appreciate Pharmacy providing glycemic oversight. Recent a1c noted (7%). control is excellent at this time. (4) Hypertension: Plan: BPs starting to rise; thus, resume losartan. continue metoprolol. (5) Dyslipidemia: Plan: Cont Lipitor. Most recent lipid profile was on 10/12/23 and LDL was very low in the 40s. (6) Sleep apnea: Plan: Cont CPAP (7) GERD (gastroesophageal reflux disease): Plan: Continue H2 lucina. He may want to consider using PPI in daly of his pepcid since he is having dyspepsia. Stress from his surgery, celebrex use, etc can also cause gastritis/dyspepsia. We discussed use of PPI prior to d/c home. (8) Psoriatic arthritis: Plan: Follows with Dr Gordon Pereira, [facility]. Ustekinumab has been on hold pre-op in preparation for this surgery. Defer resumption of his biological agent to his outpatient providers in the future. Arthritis is largely stable at this time. Cont celebrex BID. (9) Anemia: Plan: Mild, normocytic (MCV 90s). Fe studies - ferritin is normal, but transferrin sat is low at 9%. He may have Fe def. recommended he have his Fe panel rechecked post-discharge. in meantime, consider PO ferrous sulfate starting in a week or two and take daily. 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 No documented episodes since. Continues to examine in NSR. (11) Hyponatremia: Plan: resolved (12) DVT prophylaxis: Plan: lovenox 40mg daily Plan pt's updated at bedside from medical standpoint ok to d/c home it was our pleasure participating in Dr Prince's care Admission and Anticipated Discharge Date Admission Date: October 18, [address] Prince is getting ready to d/c home reports some mild dyspepsia and mild LLQ discomfort but moving bowels nicely and no vomiting nausea responds to zofran denies dyspnea or DEL ANGEL can take deep, normal breaths no wheezing today no pleuritic discomfort cough largely resolved Review of Systems Review of Systems: gen - no fevers or chills; appetite fair at best; tolerating PO cv - no chest pain, no orthopnea pulm - no dyspnea GI - distension resolved; mild dyspepsia and nausea Physical Exam Physical Exam: gen - NAD, looks good today neck - no JVD mouth - MMM heart - RRR, s1 s2, 1/6 DAVID LLSB lungs - crackles b/l bases nearly resolved today; airation MUCH improved - near normal today; no wheezes; no rhonchi; no increased work of breathing abd - distension resolved; nontender; soft; BS+, no HSM ext - no edema, pulses 2+ b/l psych - alert/oriented x 3 skin - abdominal wall incisions covered w/ dressings - clean Results & Data Results & Data Vital Signs (Past 12 Hours) Vital Signs Temp Pulse Resp BP BP Pulse Ox O2 Del Method 10/22/23 11:07 36.5 C 62 18 167/89 H 151/83 H 96 10/22/23 10:25 62 151/83 H 10/22/23 09:51 36.5 C 62 18 167/89 H 118/72 96 10/22/23 09:48 Room Air 10/22/23 08:59 36.5 C 62 18 167/89 H 118/72 96 10/22/23 07:23 62 18 96 Room Air 10/22/23 07:22 36.5 C 56 L 16 167/89 H 98 Room Air Laboratory Results Laboratory Results - last 24 hr 10/21/23 10/21/23 10/21/23 12:16 16:41 20:01 WBC RBC Hgb Hct MCV MCH MCHC RDW Std Deviation RDW Coeff of Noah Plt Count MPV Immature Gran % (Auto) Neut % (Auto) Lymph % (Auto) [place] % (Auto) Eos % (Auto) Baso % (Auto) Neut # (Auto) Lymph # (Auto) [place] # (Auto) Eos # (Auto) Baso # (Auto) Immature Gran # (Auto) RBC Morphology Sodium Potassium Chloride Carbon Dioxide Anion Gap BUN Creatinine Est Cr Clr Drug Dosing Est GFR ( Amer) Est GFR (Non-Af Amer) BUN/Creatinine Ratio Glucose POC Glucose 106 H 89 98 Calcium 10/22/23 10/22/23 05:52 07:15 WBC 4.48 L RBC 3.48 L Hgb 10.8 L Hct 32.6 L MCV 93.7 MCH 31.0 MCHC 33.1 RDW Std Deviation 48.4 H RDW Coeff of Noah 14.2 Plt Count 199 MPV 10.2 Immature Gran % (Auto) 0.2 Neut % (Auto) 58.0 Lymph % (Auto) 25.0 [place] % (Auto) 11.2 Eos % (Auto) 5.4 Baso % (Auto) 0.2 Neut # (Auto) 2.60 Lymph # (Auto) 1.12 L [place] # (Auto) 0.50 Eos # (Auto) 0.24 Baso # (Auto) 0.01 Immature Gran # (Auto) 0.01 RBC Morphology Unremarkable Sodium 141 Potassium 3.9 Chloride 108 H Carbon Dioxide 29 Anion Gap 4 BUN 8 Creatinine 0.95 Est Cr Clr Drug Dosing 63.8 Est GFR ( Amer) 94.3 Est GFR (Non-Af Amer) 81.3 BUN/Creatinine Ratio 8.4 L Glucose 104 H POC Glucose 104 H Calcium 8.0 L PG Care Time/CCT Total # of Minutes Spent Total Time Spent with Patient: Total time spent is greater than 50% in coordination of care (as documented) at patient's floor/unit and/or counseling patient: Coding Level of Care Code 78432 SUB INP/OBS CARE 10/11MIN Diagnoses Sigmoid diverticulitis K57.32 Cough R05 Type 2 diabetes mellitus E11.9 Hypertension I10 Dyslipidemia E78.5 Sleep apnea G47.30 GERD (gastroesophageal reflux disease) K21.9 Psoriatic arthritis L40.50 Anemia D64.9 History of atrial fibrillation Z86.79 Hyponatremia E87.1 DVT prophylaxis Z29.9
== END 2023-10-22 11:31 | disposition home or self-care (01) | DRG 330 ==
LOC: ASU 07:55 → 3E 12:50